=== PATIENT | female | born 1985 | race Caucasian/White ===

== ENCOUNTER 2021-05-29 09:40 | Outpatient (CLI) | payer BC, SELFPAY ==
[2021-05-29 19:11] LABS: Basophils Absolute Auto 0.1 K/mm3 (0.0-0.1); Basophils Percent Auto 0.9 % (0.2-1.2); Eosinophils Absolute Auto 0.3 K/mm3 (0-0.3); Eosinophils Percent Auto 4.8 % (0-4.4); Hematocrit 42.7 % (37.0-47.0); Immature Granulocyte Absolute 0.02 K/mm3 (0.00-0.031); Immature Granulocyte Percent A 0.3 % (0-0.5); Lymphocytes Absolute Auto 1.91 K/mm3 (0.9-3.2); Lymphocytes Percent Auto 32.9 % (18.3-44.2); Mean Corpuscular HGB Conc 32.8 g/dl (32-36); Mean Corpuscular Hemoglobin 28.6 pg (26-34); Mean Corpuscular Volume 87.3 fl (80-100); Mean Platelet Volume 9.2 fl (7.4-10.4); Monocytes Absolute Auto 0.6 K/mm3 (0.1-0.6); Monocytes Percent Auto 9.7 % (2.6-8.5); Neutrophils Percent Auto 51.4 % (45.5-73.1); Platelet Count Result 359 k/mm3 (150-375); Red Blood Count 4.89 M/mm3 (4.2-5.4); Red Cell Distribution Width 13.1 % (11.5-14.5); White Blood Count 5.8 K/mm3 (4.5-10.0)
[2021-05-29 19:20] LABS: Alanine Aminotransferase 11 U/L (4-35); Albumin Level 4.5 g/dL (3.5-5.1); Alkaline Phosphatase 73 U/L (38-126); Anion Gap 9 mmol/L (8-16); Aspartate Amino Transferase 15 U/L (14-36); Bilirubin,Total 0.5 mg/dL (0.2-1.3); Blood Urea Nitrogen 11 mg/dL (7-17); Calcium 9.7 mg/dL (8.4-10.2); Carbon Dioxide 24 mmol/L (22-30); Chloride 104 mmol/L (98-107); Cholesterol 220 mg/dL (0-200); Estimated Glomerular Filt Rate > 60; Glucose 98 mg/dL (65-110); HDL Direct 47 mg/dL; Potassium 4.2 mmol/L (3.4-5.0); Sodium 137 mmol/L (137-145); Triglycerides 108 mg/dL (<150)
[2021-05-29 19:31] LABS: LDL Cholesterol Direct 126 mg/dL
== END 2021-05-29 09:41 | disposition home or self-care (01) ==
PROVIDERS: PCP Family Medicine; Visit Provider Family Medicine
DX: E66.3 Overweight (principal); E11.9 Type 2 diabetes mellitus without complications
CPT/HCPCS: 36415; 80053; 80061; 83036; 84443; 85025

== ENCOUNTER 2023-01-15 08:13 | Outpatient (CLI) | payer BC, SELFPAY ==
[2023-01-15 20:34] LABS: Alanine Aminotransferase 25 U/L (6-35); Albumin Level 3.9 g/dL (3.5-5.1); Alkaline Phosphatase 62 U/L (38-126); Anion Gap 4 mmol/L (8-16); Aspartate Amino Transferase 43 U/L (14-36); Bilirubin,Total 0.4 mg/dL (0.2-1.3); Blood Urea Nitrogen 6 mg/dL (7-17); Calcium 9.3 mg/dL (8.4-10.2); Carbon Dioxide 25 mmol/L (22-30); Chloride 101 mmol/L (98-107); Cholesterol 244 mg/dL (0-200); Estimated Glomerular Filt Rate > 60; Glucose 87 mg/dL (65-110); HDL Direct 63 mg/dL; Sodium 130 mmol/L (137-145); Triglycerides 176 mg/dL (<150)
[2023-01-15 20:45] LABS: LDL Cholesterol Direct 127 mg/dL
== END 2023-01-15 08:14 | disposition home or self-care (01) ==
LOC: ANHBWCLAB 08:15
PROVIDERS: PCP Family Medicine; Visit Provider Family Medicine
DX: Z00.00 Encounter for general adult medical examination without abnormal findings (principal); F41.8 Other specified anxiety disorders; H91.90 Unspecified hearing loss, unspecified ear; M25.569 Pain in unspecified knee; R06.83 Snoring
CPT/HCPCS: 36415; 80053; 80061

== ENCOUNTER 2023-02-25 12:23 | Emergency (ER) | payer BC, SELFPAY ==
[2023-02-25 12:31] VITALS: BP 122/65; PULSE 89; RESP 16; TEMP 37.1; O2SAT 100
--- NOTE | 2023-02-25 12:45 | ED.URI ---
HPI - URI/Sore Throat General Chief Complaint: Upper Respiratory Infection Stated Complaint: Cough/Chest Congestion Time Seen by Provider: 02/25/23 12:45 Source: patient and RN notes reviewed History of Present Illness HPI Narrative: Patient is a 37-year-old female who presents to urgent care with complaints of chest congestion, cough and drainage. Patient is 28 weeks . States that she took Benadryl last night. States her symptoms started on Saturday. Patient denies any ill exposures, fever, nausea or vomiting. Denies any history of asthma or pneumonia. No other acute complaints. No acute distress noted. Patient aware of the plan of care. Some parts of this dictation were generated by voice recognition software and may contain typographical and/or grammatical inaccuracies. Related Data Home Medications Medication Instructions Recorded Confirmed multivitamin 1 tablet PO DAILY 05/29/21 03/14/22 Allergies Allergy/AdvReac Type Severity Reaction Status Date / Time No Known Allergies Allergy Verified 01/15/23 07:53 Review of Systems Review of Systems: CONSTITUTIONAL: Denies fever, chills, or sweats. EYES: Denies visual changes, redness, or discharge. ENT: Reports of sinus congestion, runny nose and postnasal drainage CARDIOVASCULAR: Denies chest pain, palpitations, or edema. RESPIRATORY: Reports cough GASTROINTESTINAL: Denies abdominal pain, nausea, vomiting, or diarrhea. GENITOURINARY: Denies dysuria or hematuria. SKIN: Denies rash or itching. MUSCULOSKELETAL: Denies back pain, joint pain, or myalgia. NEUROLOGIC: Denies headache, numbness, or weakness. All other systems reviewed are negative, except as documented in HPI. [facility] Past Medical History Medical History Anxiety Surgical History Surgical History H/O LEEP Family History Family History Father Cancer Heart problem Mother Depression Hypertension Anxiety Grandparent Diabetes mellitus Grandparent Pancreatic cancer Social History Social History (Updated 10/15/22 @ 11:29 by Cele Jauregui MA) Smoking packs per day: 1 Smoking cigarettes per day: 20.0 Years smoked: 17 Smoking pack-years: 17.00 Smoking status: Former smoker Tobacco type: e-cigarettes/vaping Alcohol intake: never Substance use: never Lack of Transportation: No Lack of Food: Never True Current Housing: I Have Housing Concerned About Future Housing: No Difficulty Paying Gas/Electric Bills: No Difficulty Paying for Meds: No Currently Unemployed: No Education: High School Diploma/GED Difficulty w/ Childcare or Family Care: No Comments At the time of my signature, I reviewed and agree with the nursing past medical, surgical, social, and family history. There is no relevant family history pertinent to the patient complaint. Exam Narrative: GENERAL: This is a well-nourished, well-developed patient, in no apparent distress. HEAD: normocephalic, atraumatic. EYES: PERRL. Sclera clear/white. Vision is grossly intact. EARS: External ears normal, auditory canals clear and without drainage, TMs normal without perforation. Hearing grossly intact. NOSE: External nose normal with no obvious nasal discharge, nares without redness, no rhinorrhea. THROAT: Mucous membranes moist, posterior pharynx clear. Moderate postnasal drainage NECK: Neck supple, non-tender without lymphadenopathy, masses or thyromegaly. CARDIOVASCULAR: Regular rate and rhythm RESPIRATORY: Inspiratory wheezes throughout SKIN: warm, intact with no suspicious lesions or rash, good texture and turgor. NEURO: awake, alert, and oriented to person, place and time. There were no obvious focal neurologic abnormalities. EXTREMITIES: No clubbing, cyanosis, or edema. Course Course Level of Care: [facility] Care Visit V
== END 2023-02-25 13:02 | disposition home or self-care (01) ==
PROVIDERS: Emergency Provider Nurse Practitioner Family; PCP Family Medicine
DX: O99.513 Diseases of the respiratory system complicating pregnancy, third trimester (principal); Z3A.28 28 weeks gestation of pregnancy; J40 Bronchitis, not specified as acute or chronic
CPT/HCPCS: 99213; G0463

== ENCOUNTER 2023-07-30 09:17 | Outpatient (CLI) | payer BC, SELFPAY ==
--- NOTE | ~2023-07-30 | XR_ITS ---
Right Hand Technique: PA and lateral views were obtained. Clinical History: Pain Findings: No acute fracture or dislocation is seen. Osseous alignment is anatomic. Joint spaces are p reserved. Soft tissues are unremarkable. Impression: Unremarkable right hand. Reviewed, dictated and finalized at location M. Impression: Unremarkable right hand.
--- NOTE | ~2023-07-30 | XR_ITS ---
Right wrist Technique: PA and lateral views were obtained. Clinical History: Pain Findings: No acute fracture or dislocation is seen. Osseous alignment is anatomic. Joint spaces are p reserved. Soft tissues are unremarkable. Impression: Unremarkable right wrist radiographs. Reviewed, dictated and finalized at location M. Impression: Unremarkable right wrist radiographs.
[2023-07-30 19:14] LABS: Basophils Percent Auto 0.5 % (0.2-1.2); Eosinophils Absolute Auto 0.3 K/mm3 (0-0.3); Eosinophils Percent Auto 3.5 % (0-4.4); Hemoglobin 12.6 g/dL (12.0-15.0); Immature Granulocyte Absolute 0.02 K/mm3 (0.00-0.031); Immature Granulocyte Percent A 0.3 % (0-0.5); Lymphocytes Absolute Auto 2.56 K/mm3 (0.9-3.2); Lymphocytes Percent Auto 33.5 % (18.3-44.2); Mean Corpuscular HGB Conc 31.5 g/dl (32-36); Mean Corpuscular Volume 85.7 fl (80-100); Mean Platelet Volume 8.6 fl (7.4-10.4); Monocytes Absolute Auto 0.7 K/mm3 (0.1-0.6); Monocytes Percent Auto 8.6 % (2.6-8.5); Neutrophils Absolute Auto 4.1 K/mm3 (1.3-6.7); Neutrophils Percent Auto 53.6 % (45.5-73.1); Platelet Count Result 358 k/mm3 (150-375); Red Blood Count 4.67 M/mm3 (4.2-5.4); Red Cell Distribution Width 13.2 % (11.5-14.5); White Blood Count 7.7 K/mm3 (4.5-10.0)
[2023-07-30 19:24] LABS: Alanine Aminotransferase 39 U/L (6-35); Albumin Level 4.2 g/dL (3.5-5.1); Alkaline Phosphatase 78 U/L (38-126); Anion Gap 6 mmol/L (8-16); Aspartate Amino Transferase 49 U/L (14-36); Bilirubin,Total 0.4 mg/dL (0.2-1.3); Blood Urea Nitrogen 12 mg/dL (7-17); Calcium 9.3 mg/dL (8.4-10.2); Carbon Dioxide 27 mmol/L (22-30); Chloride 102 mmol/L (98-107); Cholesterol 208 mg/dL (0-200); Estimated Glomerular Filt Rate > 60; Glucose 86 mg/dL (65-110); HDL Direct 44 mg/dL; Potassium 4.3 mmol/L (3.4-5.0); Sodium 135 mmol/L (137-145); Triglycerides 152 mg/dL (<150)
[2023-07-30 19:35] LABS: LDL Cholesterol Direct 118 mg/dL
== END 2023-07-30 09:18 | disposition home or self-care (01) ==
PROVIDERS: PCP Family Medicine; Visit Provider Nurse Practitioner Adult Health
DX: E78.5 Hyperlipidemia, unspecified (principal); M25.531 Pain in right wrist; M79.641 Pain in right hand
CPT/HCPCS: 36415; 73100; 73120; 80053; 80061; 84443; 85025

== ENCOUNTER 2023-12-19 11:48 | Outpatient (CLI) | payer BC, SELFPAY ==
[2023-12-19 19:35] LABS: Hematocrit 40.3 % (37.0-47.0); Hemoglobin 12.9 g/dL (12.0-15.0); Mean Corpuscular Hemoglobin 26.8 pg (26-34); Mean Corpuscular Volume 83.8 fl (80-100); Mean Platelet Volume 8.6 fl (7.4-10.4); Platelet Count Result 379 k/mm3 (150-375); Red Blood Count 4.81 M/mm3 (4.2-5.4); Red Cell Distribution Width 13.1 % (11.5-14.5); White Blood Count 7.7 K/mm3 (4.5-10.0)
[2023-12-19 19:44] LABS: Alanine Aminotransferase 12 U/L (6-35); Albumin Level 4.4 g/dL (3.5-5.1); Alkaline Phosphatase 83 U/L (38-126); Anion Gap 6 mmol/L (8-16); Aspartate Amino Transferase 45 U/L (14-36); Bilirubin,Total 0.4 mg/dL (0.2-1.3); Blood Urea Nitrogen 11 mg/dL (7-17); Calcium 9.2 mg/dL (8.4-10.2); Carbon Dioxide 27 mmol/L (22-30); Chloride 104 mmol/L (98-107); Estimated Glomerular Filt Rate > 60; Glucose 80 mg/dL (65-110); Potassium 4.3 mmol/L (3.4-5.0); Sodium 137 mmol/L (137-145)
[2023-12-19 20:18] LABS: Erythrocyte Sedimentation Rate 14 mm/hr (0-20)
[2023-12-19 20:44] LABS: Rheumatoid Factor < 12.0 IU/ML (<12)
[2023-12-23 20:23] LABS: ANA Cascade Screen Negative (Negative)
== END 2023-12-19 11:49 | disposition home or self-care (01) ==
LOC: ANHBWCLAB 11:49
PROVIDERS: PCP Nurse Practitioner Adult Health; Visit Provider Nurse Practitioner Adult Health
DX: M25.50 Pain in unspecified joint (principal)
CPT/HCPCS: 36415; 80053; 84443; 84550; 85027; 85652; 86038; 86225; 86235; 86364; 86430

== ENCOUNTER 2025-02-13 12:01 | Emergency (ER) | payer BC, SELFPAY ==
--- NOTE | ~2025-02-13 | CT_ITS ---
EXAMINATION: CT abdomen pelvis w con DATE: 02/13/2025 13:20 INDICATION: Right upper quadrant abdominal pain TECHNIQUE: Computed tomography (CT) of the abdomen and pelvis was performed with 100 mL Omnipaque-350 intravenous contrast. Automated exposure control and iterative reconstruction technique were employe d. The dose-length product was 659.05 mGy-cm. COMPARISON: None FINDINGS: Lung bases are clear. Heart size normal. No pericardial or pleural effusion. Multiple low density gal lstones in the otherwise normal-appearing gallbladder. Liver is normal. No intra or extra hepatic sharron iary ductal dilation. Spleen, pancreas, bilateral adrenal glands and kidneys are normal. Bowels inclu ding the appendix are normal. Bladder is normal. section scars along the anterior pelvic wal l and the anterior lower uterine segment. Bilateral adnexa are unremarkable with a couple subcentimet er follicles at the left ovary. No free intraperitoneal gas or fluid. No pathologically enlarged abdo astrid or pelvic lymphadenopathy. Mild lumbar and lower thoracic spondylosis. IMPRESSION: 1. Cholelithiasis without evident acute cholecystitis or biliary obstruction. 2. No other acute intra-abdominal/pelvic process with normal appendix. Reviewed, dictated and finalized at location A.
--- OUTSIDE RECORDS SUMMARY | 2025-02-13 12:02 | XMS_ITS | Clinical Summary ---
Author Organization [facility] [employer] Address [address] [place] [address] Care Team Providers Care Plastic Panel Installer Name Role Phone Obinna Leger MD Unavailable [phone] Source Comments [facility] [employer],non-owned Affiliates and Associated Physician Practices is amultiple site organization consisting of ambulatory clinics and hospital sitesin [place], [place], [place] and [place]. This disclosure is being madepursuant to the Care Everywhere program and may not contain all information available regarding this patient. Last updated 18.[facility] [employer] Allergies No known active allergies Medications * Be aware that medications may not be up to date on this document. Alwaysverify current medications with the patient. Medication Sig Dispensed Refills Start Date End Date Status PreviDent 5000 Plus 1.1 % 02/15/2022 Active Vit w/ Fe Bisg-FA (PNV Tabs 20-1) 20-1 MG TABS Take 1 tablet by mouth once daily 90 tablet 4 06/19/2024 Active ferrous sulfate 325 (65 FE) MG tablet Take 1 (one) tablet by mouth once daily 100 tablet 4 07/03/2024 Active Additional Information Patient not taking.Reported on 01/26/2025 folic acid (Folvite) 1 MG tablet Take 1 (one) tablet by mouth once daily Active vitamin D3 (Cholecalciferol ) 10 MCG (400 UNIT) tablet Take 1 (one) tablet by mouth once daily Active cyanocobalamin (Vitamin B-12) 1000 MCG tablet Take 1 (one) tablet by mouth once daily Active oxyCODONE-acetam inophen (Percocet) 5-325 MG tabletIndication s:S/P section Take 1 (one) tablet by mouth every 6 hours as needed for Pain 12 tablet 01/23/2025 Active Additional Information Patient not taking.Reported on 01/26/2025 ibuprofen (Motrin) 600 MG tablet Take 1 (one) tablet by mouth every 6 hours as needed for Pain 40 tablet 1 01/23/2025 Active gabapentin (Neurontin) 100 MG capsule Take 2 (two) capsules by mouth 2 times daily as needed (pain) 30 capsule 1 01/23/2025 Active aspirin (Aspirin) 81 MG chew tablet Take 1 (one) tablet by mouth once daily 5 Discontinue d(Tx Complete) Active Problems Problem Noted Date Diagnosed Date Previous section 11/23/2024 Dichorionic diamniotic twin , antepartu m 08/18/2024 H/O LEEP 10/11/2022 Antepartum multigravida of advanced maternal age 1210/11/2022 Tinnitus of both ears 07/06/2020 Tachycardia 07/06/2020 Strain of rhomboid muscle 07/06/2020 Resolved Problems Problem Noted Date Diagnosed Date Resolved Date BMI 30.0-30.9,adult 07/06/2020 08/18/20 24 Sleep disturbance 07/06/2020 08/18/2024 Body mass index (bmi) 33.0-33.9, adult 02/18/2017 07/06/2020 Encounters Date Type Department Care Team Description 01/27/2025 Telephone [facility] - RN GYNECOLOGY [address] [place] [address], [address] [place] [phone] Delfina Monzon MD Vaginal Bleeding 01/26/2025 11:20 AM CDT Office Visit [facility] - RN GYNECOLOGY [address] [place] [address], [address] [place] [phone] Obinna Leger MD Routine follow-up (Primary Dx) 01/26/2025 Travel 01/19/2025 9:40 AM CDT Anesthesia Event [facility] [address] [place] [address] Abhi Gorman MD Floretta, Marie, APRN-SHAYNA 01/19/2025 9:30 AM CDT - 01/19/2025 11:00 AM CDT [facility] [address] [place] [address] Delfina Monzon MD SECTION (REPEAT) 01/19/2025 7:37 AM CDT - 01/23/2025 6:05 PM CDT Hospital Encounter [facility] [address] [place] [address] Delfina Monzon MD Surgery General Discharge Disposition: Home or Self Care 01/12/2025 9:07 AM JEWELRY BEARING MAKER - 01/12/2025 11:59 PM [employer]RY [employer]ING [employer] Hospital Encounter [facility] - Maternal [address] [place] [phone] Dani Hines MD Head, Em Chicas MD Discharge Disposition: Home or Self Care 01/12/2025 9:00 AM JEWELRY BEARING MAKER - 01/12/2025 9:06 AM J[employer]RY [employer]ARING [employer] Hospital Encounter [facility] - Maternal [address] [place] [phone] Dani Hines MD Head, Em Chicas MD Discharge Disposition: Home or Self Care 01/05/2025 11:15 AM JEWELRY BEARING MAKER visit [facility] - RN GYNECOLOGY [address] [place] [address], [address] [place] [phone] Delfina Monzon MD GA: 36w0d 01/05/2025 9:14 AM JEWELRY BEARING [employer]KER - 01/05/2025 11:59 PM [employer]RY [employer] Hospital Encounter [facility] - Maternal [address] [place] [phone] Dani Hines MD Ok, Sarah Harrell MD Discharge Disposition: Home or Self Care 01/05/2025 9:00 AM JEWELRY BEARING [employer]KER - 01/05/2025 9:13 AM J[employer]RY [employer]ARING [employer] Hospital Encounter [facility] [address] [place] [phone] Dani Hines MD [place], Sarah Harrell MD Discharge Disposition: Home or Self Care 01/05/2025 Travel 12/29/2024 9:23 AM JEWELRY BEARING MAKER - 12/29/2024 11:59 PM [employer]RY [employer]AR[employer] Hospital Encounter [facility] [address] [place] [phone] Dani Hines MD [place], Sarah Harrell MD Discharge Disposition: Home or Self Care 12/29/2024 9:00 AM JEWELRY BEARING MAKER - 12/29/2024 9:22 AM JEWELRY BEARING [employer]KER Hospital Encounter [facility] [address] [place] [phone] Dani Hines MD [place], Sarah Harrell MD Discharge Disposition: Home or Self Care 12/22/2024 11:45 AM JEWELRY BEARING MAKER visit [facility] - RN GYNECOLOGY [address] [place] [address], [address] [phone] Delfina Monzon MD GA: 34w0d 12/22/2024 9:16 AM JEWELRY BEARING MAKER - 12/22/2024 11:59 PM JEWELRY [employer]ARING [employer]ER Hospital Encounter [facility] [address] [place] [phone] Dani Hines MD Keller, Justine M, MD Discharge Disposition: Home or Self Care 12/22/2024 9:00 AM JEWELRY BEARING MAKER - 12/22/2024 9:15 AM JEWELRY BEARING [employer]KER Hospital Encounter [facility] [address] [place] [phone] Dani Hines MD Keller, Justine M, MD Discharge Disposition: Home or Self Care 12/15/2024 9:12 AM JEWELRY BEARING MAKER - 12/15/2024 11:59 PM JEWELRY BEARING [employer]KER Hospital Encounter [facility] - Maternal [address] [place] [phone] Dani Hines MD Stewart, Jeffrey D, MD Discharge Disposition: Home or Self Care 12/15/2024 9:00 AM JEWELRY BEARING MAKER - 12/15/2024 9:11 AM JEWELRY BEARING [employer]KER Hospital Encounter [facility] - Maternal [address] [place] [phone] Dani Hines MD Stewart, Jeffrey D, MD Discharge Disposition: Home or Self Care 12/08/2024 11:45 AM JEWELRY BEARING MAKER visit [facility] - RN GYNECOLOGY [address] [place] [address], [address] [phone] Delfina Monzon MD GA: 32w0d 12/08/2024 9:15 AM JEWELRY BEARING MAKER - 12/08/2024 11:59 PM [employer]ELRY [employer]ARING [employer] Hospital Encounter [facility] - Maternal [address] [place] [phone] Dani Hines MD Stewart, Jeffrey D, MD Discharge Disposition: Home or Self Care 12/08/2024 9:00 AM JEWELRY BEARING MAKER - 12/08/2024 9:14 AM JEWELRY BEARING [employer]KER Hospital Encounter [facility] - Maternal [address] [place] [phone] Dani Hines MD Head, Em Chicas MD Discharge Disposition: Home or Self Care 12/08/2024 Travel 11/23/2024 9:45 AM JEWELRY BEARING MAKER visit [facility] - RN GYNECOLOGY [address] [place] [address], [address] [place] [phone] Delfina Monzon MD GA: 29w6d 11/23/2024 Travel from Last 3 Months Immunizations Name Administration Dates Next Due TDAP (7yrs+) 11/09/2024 TDAP, HISTORIC VACCINE 07/26/2022 Family History Medical History Relation Name Comments Hypertension Brother 1 Ramón CAD (Coronary Artery Disease) Father Cancer Father unknown [place]<[id number](male) Father Parkinson's Disease Father Diabetes Maternal Grandmother Hypertension Mother Glaucoma Paternal Grandfather Relation Name Status Comments Brother 1 Ramón Alive Brother 2 Zhou Alive Father Alive Maternal Grandfather Maternal Grandmother Mother Alive Paternal Grandfather Paternal Grandmother Sister Alive Social History Tobacco Use Types Packs/Day Years Used Date Smoking Tobacco: Former Cigarettes 1 13 Smokeless Tobacco: Never Tobacco Cessation:Counseling Given: Not Answered Comments:Currently Vape Alcohol Use Standard Drinks/Week Comments Not Currently 4.2 (1 standard drink = 0.6 oz p ure alcohol) AUDIT-C Answer Date Recorded Frequency of Alcohol Consumption Never 07/10/2019 Average Number of Drinks Not on file 019 Frequency of Binge Drinking Not on file 06/13 Overall Financial Resource Strain (CARDIA) Answe r Date Recorded How hard is it for you to pa y for the very basics like food, housing, medical care, and heating? Not hard at all 05/20/2023 PHQ-2 Answer Date Recorded Patient Health Questionnaire-2 Score 0 01/21/2025 [facility] - Occupational Stress Questionnaire Answer Date Recorded Do you feel stress - tense, restless, nervous, or anxious, or unable to sleep at night because your mind is troubled all the time - these days? Not at all 05/20/2023 Hunger Vital Sign Answer Date Recorded Within the past 12 months, y ou worried that your food would run out before you got the money to buy more. Never true 05/20/20 23 Within the past 12 months, t he food you bought just didn't last and you didn't have money to get more. Never true 05/20/2023 PRAPARE - Transportation Answer Date Re corded In the past 12 months, has l ack of transportation kept you from medical appointments or from getting medications? No 05/11 In the past 12 months, has l ack of transportation kept you from meetings, work, or from getting things needed for daily living? No 05/20/2023 Housing Stability Vital Sign Answer Holger e Recorded In the last 12 months, was t here a time when you were not able to pay the mortgage or rent on time? No 05/20/2023 In the last 12 months, how many places have you lived? 1 05/20/2023 In the last 12 months, was t here a time when you did not have a steady place to sleep or slept in a senior living (including now)? No 05/20/2023 [place] Depression Scale Answer Date Recorded [place] Depression Scale Total 4 01/22/2025 The thought of harming myself has occurred to me . Never 01/22/2025 Sex and Gender Information Value Date Recorded Sex Assigned at Not on file Gender Identity Not on file Sexual Orientation Not on file Last Filed Vital Signs Vital Sign Reading Time Taken Comments Blood Pressure 118/76 01/26/2025 11:36 AM CDT Pulse 93 01/23/2025 4:40 PM CDT Temperature 36.9 C (98.5 F) 01/23/2025 4:40 PM CDT Respiratory Rate 16 01/23/2025 8:35 AM CDT Oxygen Saturation 98% 01/23/2025 4:40 PM CDT Inhaled Oxygen Concentration - - Weight 100.7 kg (222 lb) 01/26/2025 11:36 AM CDT Height 157.5 cm (5' 2 ) 01/26/2025 11:36 AM CDT Body Mass Index 40.6 01/26/2025 11:36 AM CDT Plan of Treatment Upcoming Encounters Date Type Department Care Team (Late st Contact Info) Description 03/01/2025 11:10 AM CDT Office Visit [facility] - RN GYNECOLOGY [address] [place] [address], [address] [place] [phone] Obinna Leger MD [address] [place] [address] [place] [phone] Health Maintenance Due Date Last Done Comments HEPATITIS B VACCINE (1 of 3 - 19+ 3-dose series) 2004 COVID-19 VACCINE (2023- season) 2024 INFLUENZA VACCINE (Season Ended) 2025 PAP with HPV 06/19/2029 06/19/2024, 10/11, 10/11/2022, Additional history exists DTAP/TDAP/TD VACCINES (3 - Td or Tdap) 11/09/2034 11/09/2024, 07/26/2022 ZOSTER VACCINE (1 of 2) 2035 HEPATITIS C SCREENING Completed 07/29/2018 HIV SCREENING Completed 06/19/2024, 11/2021, 07/29/2018 DEPRESSION SCREENING Completed 01/22/2025, 11/23/2024, 06/19/2024, Additional history exists HIB VACCINE Aged Out No longer eligi ble based on patient's age to complete this topic HPV VACCINE Aged Out No longer eligi ble based on patient's age to complete this topic MENINGOCOCCAL (Group B) VACCINE SHARED DECISION-MAKING Aged Out No longer eligible based on patient's age to complete this topic MENINGOCOCCAL GROUPS A/C/Y/W VACCINE Aged Out No longer eligible based on patient's age to complete this topic PNEUMOCOCCAL VACCINE Aged Out No long er eligible based on patient's age to complete this topic Procedures Procedure Name Priority Date/Time Associated Diagnosis Comments PATHOLOGY/CYTOLOGY REPORT ORDER 01/20/2025 9:54 PM CDT HGB HCT PANEL AM Draw 01/20/2025 7:12 AM CDT PATHOLOGY TISSUE EXAM (STL) Routine 01/19/2025 11:11 AM CDT Dichorionic diamniotic twin , antepartum NEURAXIAL BLOCK Routine 01/19/2025 10:00 AM CDT SECTION (REPEAT) 01/19/2025 9:15 AM CDT , incidental NONSTRESS TEST Routine 01/19/2025 8:39 AM CDT TYPE + SCREEN PANEL STAT 01/19/2025 7 :58 AM CDT SYPHILIS ANTIBODY CASCADING REFLEX STAT 01/19/2025 7:58 AM CDT Dichorionic diamniotic twin , antepartum Previous section CBC W AUTO DIFFERENTIAL STAT 01/19/2025 7:58 AM CDT Dichorionic diamniotic twin , antepartum Previous section BIOPHYSICAL PROFILE W NST Routine 01/12/2025 9:15 AM JEWELRY BEARING MAKER Dichorionic diamniotic twin , antepartum Antepartum multigravida of advanced maternal age H/O LEEP Previous section Obesity in , antepartum High risk , antepartum CULTURE STREP B Routine 01/05/2025 11:33 AM JEWELRY BEARING MAKER Dichorionic diamniotic twin , antepartum BIOPHYSICAL PROFILE W NST Routine 01/05/2025 9:21 AM J[employer]ELRY BEARING MAKER Dichorionic diamniotic twin , antepartum Antepartum multigravida of advanced maternal age H/O LEEP Previous section Obesity in , antepartum High risk , antepartum BIOPHYSICAL PROFILE W NST Routine 12/29/2024 9:31 AM JEWELRY BEARING MAKER Dichorionic diamniotic twin , antepartum Antepartum multigravida of advanced maternal age H/O LEEP Previous section Obesity in , antepartum High risk , antepartum BIOPHYSICAL PROFILE W NST Routine 12/22/2024 9:32 AM J[employer]ELRY BEARING [employer]KER Dichorionic diamniotic twin , antepartum Antepartum multigravida of advanced maternal age H/O LEEP Previous section Obesity in , antepartum High risk , antepartum BIOPHYSICAL PROFILE W NST Routine 12/15/2024 9:11 AM JEWELRY BEARING [employer]KER Dichorionic diamniotic twin , antepartum Antepartum multigravida of advanced maternal age H/O LEEP Previous section Obesity in , antepartum High risk , antepartum SONOGRAM - COMPLETE Routine 12/08/2024 9 :20 AM JEWELRY BEARING [employer]KER Dichorionic diamniotic twin , antepartum Antepartum multigravida of advanced maternal age H/O LEEP Previous section Obesity in , antepartum High risk , antepartum HIV-1 HIV-2 ANTIBODY + HIV P24 AG PANEL Routine 06/19/2024 12:24 PM CDT 8 weeks gestation of PAP IG CT+NG+TV+HPV HR Routine 06/19/2024 10:49 AM CDT 8 weeks gestation of HEPATITIS C ANTIBODY Routine 07/29/2018 3:40 PM CDT Screening for STD (sexually transmitted disease) from Last 3 Months or Most Recently Relevant to Health Maintenance Results * PATHOLOGY/CYTOLOGY REPORT ORDER (01/20/2025 9:54 PM CDT) Narrative 01/20/2025 9:54 PM CDT Ordered by an unspecified provider. Scanned Document LAB - PATHOLOGY/CYTO LOGY ORDERABLES * (ABNORMAL) HGB HCT PANEL (01/20/2025 7:12 AM CDT) Hemoglobin 11.0(L) 11.9 - 15.8 g/dL 01/20/2025 7:23 AM CDT [facility] Hematocrit 33.1(L) 34.8 - 46.1 % 01/20/2025 7:23 AM CDT [facility] Blood BLOOD SPECIMEN / Unknown Lab Venipuncture / Unknown 01/20/2025 7:12 AM CDT 01/20/2025 7:14 AM CDT Delfina Monzon MD LAB - HEMATOLOGY ORD ERABLES [facility] [address] [place] [address] * PATHOLOGY TISSUE EXAM (STL) (01/19/2025 11:11 AM CDT) Case Report Surgical Pathology Report Case: [id number] Authorizing Provider: Delfina Monzon MD Collected: 01/19/2025 11:11 AM [facility] Received: 01/20/2025 07:48 AM [facility] Pathologist: Tamar Hudson MD Specimen: Placenta 01/21/2025 3:02 PM CDT [facility] Final Diagnosis 1. Placenta, delivery: -- Third trimester dichorionic diamniotic placenta -- Placenta A&B: No evidence of villitis -- Placenta A&B: Pigment-laden macrophages seen, consistent with meconium staining -- Placenta A&B: No evidence of chorioamnionitis -- Placenta A&B: 3-vessel umbilical cord with focal acute vasculitis and no evidence of funisitis 01/21/2025 3:02 PM [facility] Clinical History Thirty-eight weeks of gestational age. DC/DA Twins 01/21/2025 3:02 PM [facility] Gross Description Received in formalin labeled with the patient's name and placenta for pathology is a 21 x 20.5 x 3.5 cm fused twin placenta. One umbilical cord has a single cord clamps and is arbitrarily taken as placenta A and the opposing umbilical cord has 2 cord clamps that is arbitrarily taken as placenta B. Placenta A has a 21 cm in length and 1.5 cm in average diameter white-de oliveira, tri vascular umbilical cord that inserts 3.5 cm from the nearest disc margin. Placenta B has a 15 cm in length and 1.5 cm in average diameter white-de oliveira, tri vascular umbilical cord that inserts marginally. Placenta A makes up approximately 60% of the placental disc. Placenta B makes up approximately 40% of the placental disc. The trimmed placenta weighs 925 g. The /dividing membranes are de oliveira and semitranslucent. The surface is blue-hernandez with normal arborizing vasculature pattern. The maternal surface is red-brown, well-formed and grossly appears complete. The specimen is sectioned to show spongy red-brown cut surfaces. Licensed Nurse Practitioner sections are submitted as follows: A1-dividing membranes A2-umbilical cord and membranes, placenta A A3-umbilical cord and membranes, placenta B A4-A5-full thickness sections of placental disc, placenta A V2-Z0-arjf-thickness sections of placental disc, placenta B 01/21/2025 3:02 PM [facility] Microscopic Description Placental disc, membrane, and umbilical cord examined. 01/21/2025 3:02 PM [facility] Disclaimer All histochemical and/or immunohistochemical results are interpreted with controls that demonstrate appropriate staining reactions before reporting results. Note on use of immunocytochemistry reagents: This test was developed and its performance characteristic determined by [facility], Department of Laboratory Medicine. It has not been cleared or approved by the U.S. Food and Drug Administration (FDA). The FDA has determined that such clearance or approval is not necessary. The test is used for clinical purpose. It should not be regarded as investigational or for research. This laboratory is certified to perform high complexity testing. The performance characteristics of the IHC/MAYRA assays have been validated on formalin-fixed paraffin embedded tissues only. The assays have not been validated on decalcified tissues. Results should be interpreted with caution. 01/21/2025 3:02 PM CDT [facility] Embedded Images 01/21/2025 3:02 PM CDT [facility] Pathology/Cytolo gy ENTIRE PLACENTA / Unknown Collection / Unknown 01/19/2025 11:11 AM CDT 01/20/2025 7:48 AM CDT Delfina Monzon MD LAB - PATHOLOGY/CYTO LOGY ORDERABLES Performing Organization Address City/State/[facility] Co de Phone Number [facility] [address] [place] [id number] * Neuraxial Block (01/19/2025 10:00 AM CDT) Narrative Abhi Gorman MD - 01/19/2025 10:00 AM CDT Janie Segal APRN-SHAYNA 01/19/2025 10:01 AM Neuraxial Block Note Pre-Procedure: Procedure Name: Neuraxial Block Patient Location: OR Indications: surgical anesthesia Pre-Anesthetic Checklist: Patient identified, IV Checked, Risks and benefits discussed, Surgical consent verified, Monitors and equipment, Site examined, Pre-op evaluation done, Time-out performed, Informed consent obtained, Questions answered/anesthesia questions answered and Allergies reviewed Anticoagulation/ Anti-thrombosis status confirmed? Yes Supplemental O2: nasal cannula Monitors: BP, continuous pluse ox, EKG and End tidal CO2 Patient Condition: awake Patient Sedated? No Procedure: Block Type: Spinal Prep: Betadine Sterile Field: mask, cap/hat, sterile established and sterile gloves Approach: midline Skin was localized? Yes Spinal Block: Is this procedure for postop pain? Yes Reason: anticipated postoperative pain Diagnosis: labor Needle Type: spinal needle Needle Gauge: 25 Needle Length: 90 mm Placement Site: L3-4 Number of Attempts: 1 CSF: aspiration before injection, aspiration during injection, aspiration after injection Degree of difficulty: none Procedure Tolerance: tolerated well Sensory Level: T4 Motor Blockade: Yes Position post procedure: left uterine displacement Vital Signs: Vital signs monitored and stable throughout. See anesthesia record for details., Vital signs moniitored and stable throughout. See nursing vitals flowsheet for details., heart tones monitored and stable throughout. Staff: Anesthesia Provider: Janie Segal APRN-POLICE JUDGE - performed the procedure Additional Notes: Pt understands risks and benefits of SAB and consents to SAB. Abhi Gorman MD GENERAL ANESTH ESIA ORDERABLES * NONSTRESS TEST (01/19/2025 8:39 AM CDT) Narrative Delfina Monzon MD - 01/19/2025 8:39 AM CDT Mandy Kirkland RN 01/19/2025 8:40 AM Name: Theodora Cristina Date of : 1985 Today's Date: 01/19/2025 38w0d NST RESULTS (MULTIPLES) OBJECTIVE FINDINGS , , , BP: 120/73 NST Indication(s): Multiple gestation Uterine Irritability: Yes Contractions: Irregular Frequency: x3 Duration (sec) Range: 50-60 Perceived Intensity: Mild COMMENTS/INTERVENTIONS OBJECTIVE FINDINGS Movement A: Present Monitoring Mode A: External Baseline FHR: 140 BPM Variability A: Moderate Accelerations-A: Yes Decelerations-A: None Movement B: Present Monitoring Mode B: External Baseline FHR B: 135 BPM Variability B: Moderate Accelerations-B: Yes Decelerations-B: None Mandy Kirkland RN Delfina Monzon MD OB GYNE ORDERABLES * SYPHILIS ANTIBODY CASCADING REFLEX (01/19/2025 7:58 AM CDT) Treponema pallidum Antibody Non Reactive Non Reactive 01/19/2025 5:54 PM CDT [facility] Comment: No Laboratory evidence of syphilis infection. Note: Circulating antibodies may be low or undetectable in early infection. If recent exposure is suspected, re-draw sample in 2-4 weeks and repeat testing. Blood BLOOD SPECIMEN / Unknown Venipuncture / Unknown 01/19/2025 7:58 AM CDT 01/19/2025 8:03 AM CDT Delfina Monzon MD LAB - SEROLOGY ORDER ZANE [facility] [address] [place] [address] * TYPE + SCREEN PANEL (All [facility] except [facility]) (01/19/2025 7:58 AM CDT) Pathologist [facility] ABO Rh O POS 01/19/2025 8:54 AM CDT [facility] Comment:History checked. Antibody Screen NEG 8:54 AM CDT [facility] Blood Bank BLOOD SPECIMEN / Unknown Venipuncture / Unknown 01/19/2025 7:58 AM CDT 01/19/2025 8:03 AM CDT Delfina Monzon MD LAB - BLOOD BANK ORD ERABLES [facility] [address] [phone] * (ABNORMAL) CBC W AUTO DIFFERENTIAL (01/19/2025 7:58 AM CDT) Pathologist [facility] WBC 13.8(H) 4.0 - 10.7 x10E9/L 01/19/2025 8:07 AM CDT [facility] RBC Count 4.35 3.90 - 5.20 x10E12/L 01/19/2025 8:07 AM CDT [facility] Hemoglobin 13.2 11.9 - 15.8 g/dL 01/19/2025 8:07 AM CDT [facility] Hematocrit 36.9 34.8 - 46.1 % 01/19/2025 8:07 AM CDT [facility] MCV 84.8 80.0 - 98.0 fL 01/19/2025 8:07 AM CDT [facility] MCH 30.3 26.7 - 33.6 pg 01/19/2025 8:07 AM CDT [facility] MCHC 35.8 31.7 - 36.3 g/dL 01/19/2025 8:07 AM [facility] RDW-CV 14.1 11.3 - 14.8 % 01/19/2025 8:07 AM [facility] Platelet Count 194 150 - 420 x10E9/L 01/19/2025 8:07 AM [facility] MPV 9.5 7.8 - 11.4 fL 01/19/2025 8:07 AM [facility] Neutrophil % 76.9(H) 41.0 - 74.0 % 01/19/2025 8:07 AM [facility] Lymphocyte % 15.6(L) 17.0 - 47.0 % 01/19/2025 8:07 AM [facility] Monocyte % 5.3 3.0 - 11.0 % 01/19/2025 8:07 AM [facility] Eosinophil % 1.2 0.0 - 7.0 % 01/19/2025 8:07 AM [facility] Basophil % 0.3 0.0 - 1.6 % 01/19/2025 8:07 AM [facility] Immature Granulocytes % 0.7 0.0 - 1.0 % 01/19/2025 8:07 AM [facility] Neutrophil Absolute 10.64(H) 1.60 - 7.50 x10E9/L 01/19/2025 8:07 AM [facility] Lymphocyte Absolute 2.15 1.00 - 4.40 x10E9/L 01/19/2025 8:07 AM [facility] Monocyte Absolute 0.73 0.15 - 1.00 x10E9/L 01/19/2025 8:07 AM [facility] Eosinophil Absolute 0.16 0.00 - 0.60 x10E9/L 01/19/2025 8:07 AM [facility] Basophil Absolute 0.04 0.00 - 0.13 x10E9/L 01/19/2025 8:07 AM [facility] Blood BLOOD SPECIMEN / Unknown Venipuncture / Unknown 01/19/2025 7:58 AM CDT 01/19/2025 8:03 AM CDT Delfina Monzon MD LAB - HEMATOLOGY ORD ERABLES [facility] [address] [id number] * BIOPHYSICAL PROFILE W NST (01/12/2025 9:15 AM [employer]) Only the most recent of5 resultswithin the time period is included. Linked Results Indication ======== DC/DA Twins Incomplete anatomy- Twin A, lt hand Complete anatomy- Twin B Advanced Maternal Age (39) Normal 3 hr GTT Class II Obesity Hx LEEP G1: CD History ====== OB History 2. Para 1 T1 1. live 05/21/2023. Gest. age 40 w + 4 d. Weight 3,033 g. Sex of child: female. Details: delivery, breech Fetus A: Lab Tests Test Date Result NIPT Low risk, female/female Maternal Assessment = Physical Exam Height 157 cm, 5 ft 2 in. Weight 109 kg, 240 lb. Initial weight 98 kg, 217 lb. BMI 43.90 kg/m . Initial BMI 39.69 kg/m . Weight gain 10 kg, 23 lb Method ====== Transabdominal ultrasound examination. View: Sufficient ========= Twin . Number of fetuses: 2. Dichorionic-diam niotic Dating ====== Date Details Gest. age RUY Stated RUY 37 w + 0 d 02/02/2025 Assigned dating based on stated RUY, selected on 09/15/2024 37 w + 0 d 02/02/2025 Fetus A: General Evaluation Cardiac activity present. FHR 157 bpm. Presentation: breech right Placenta: Placental site: anterior Fetus B: General Evaluation Cardiac activity present. FHR 167 bpm. Presentation: breech left Placenta: Placental site: anterior Fetus A: Amniotic Fluid Assessment ===== Amount of AF: normal Q1 7.0 cm Fetus B: Amniotic Fluid Assessment ===== Amount of AF: normal Q1 3.9 cm Fetus A: Biophysical Profile 2: breathing movements 2: Gross body movements 2: tone 2: Amniotic fluid volume NST: reactive 10/10 Biophysical profile score Fetus B: Biophysical Profile 2: breathing movements 2: Gross body movements 2: tone 2: Amniotic fluid volume NST: reactive 10/10 Biophysical profile score Fetus A: Non Stress Test NST interpretation: reactive. Baseline FHR 140 bpm. Baseline variability: moderate. Accelerations: present. Decelerations: absent. Uterine activity: present Fetus B: Non Stress Test NST interpretation: reactive. Baseline FHR 135 bpm. Baseline variability: moderate. Accelerations: present. Decelerations: absent. Uterine activity: present Fetus A: Growth Overview = Exam date GA BPD (mm) HC (mm) AC (mm) FL (mm) HL (mm) EFW (g) 09/15/2024 20w 0d 47.7 68% 173.5 37% 151 56% 33.4 59% 33.9 95% 348 65% 10/14/2024 24w 1d 61.4 73% 221.1 31% 189.1 26% 43.1 36% 38.7 26% 644 32% 11/09/2024 27w 6d 69.8 44% 255.3 17% 233.7 37% 52.1 32% 49.6 78% 1122 34% 12/08/2024 32w 0d 77.3 15% 281.9 3% 284.8 64% 59.3 13% 52.6 16% 1827 31% 01/05/2025 36w 0d 83.2 4% 299.8 <1% 316.9 49% 69 30% 59.2 28% 2585 27% Fetus B: Growth Overview = Exam date GA BPD (mm) HC (mm) AC (mm) FL (mm) HL (mm) EFW (g) 09/15/2024 20w 0d 48.6 78% 181.6 68% 149.4 51% 34.1 68% 31.5 73% 355 71% 10/14/2024 24w 1d 61.2 70% 217.2 19% 194.5 41% 46.7 80% 40 45% 721 65% 11/09/2024 27w 6d 72.7 80% 266.1 56% 238.1 50% 53.3 48% 48.6 64% 1209 55% 12/08/2024 32w 0d 83.4 84% 297 35% 283.2 59% 62 40% 53 21% 1975 53% 01/05/2025 36w 0d 85.4 16% 303.4 <1% 324.8 71% 72.2 71% 60.3 41% 2826 51% Fetus A: Anatomy The following structures appear normal: Abdomen Stomach. Kidneys. Bladder. sex: female. Fetus B: Anatomy The following structures appear normal: Abdomen Stomach. Kidneys. Bladder. sex: female. Impression ========= Dichorionic-diam niotic, live, intrauterine at 37w 0d Amniotic fluid volume: normal for twin A and normal for twin B Biophysical profile is 10/10 for twin A and 10/10 for twin B Comment ======== delivery scheduled for 38w0d. Follow-up ======== Continue weekly testing until delivery. Coding ====== Procedures 41286: US Uterus Limited 73487: Biophysical Profile W NST. x2 [facility] 800razors PACS Anatomical Region Laterality Modality Other 01/12/2025 9:15 AM [employer] Agusto Lisa MD [facility] * CULTURE STREP B (01/05/2025 11:33 AM [employer]) Strep Group B Culture Negative Negative [facility] ACCOUNT BILL Comment: Centers for Disease Control and Prevention (CDC) and [place] [employer] of [employer]stetricians and Gynecologists (ACOG) guidelines for prevention of group B streptococcal (GBS) disease specify co-collection of a vaginal and rectal swab specimen to maximize sensitivity of GBS detection. Per the CDC and ACOG, swabbing both the lower vagina and rectum substantially increases the yield of detection compared with sampling the vagina alone. Penicillin G, ampicillin, or cefazolin are indicated for intrapartum prophylaxis of GBS colonization. Reflex susceptibility testing should be performed prior to use of clindamycin only on GBS isolates from penicillin-allergic women who are considered a high risk for anaphylaxis. Treatment with vancomycin without additional testing is warranted if resistance to clindamycin is noted. Microbiology MISCELLANEOUS SAMPLES / Unknown 01/05/2025 11:33 AM [facility] [employer] [facility] 01/05/2025 Comment:Vaginal/Rectal Relea s Narrative [facility] ACCOUNT BILL - 01/09/2025 3:09 PM [facility] [employer] [facility] Performed at: 01 - [facility] [address] [id number] Manager Intensive Care: Herbert Ritchie PhD, Phone: [phone] Delfina Monzon MD LAB - MICROBIOLOGY O RDERABLES [facility] ACCOUNT BILL [address] [place] [address] * SONOGRAM - COMPLETE (12/08/2024 9:20 AM [employer]) Linked Results Indication ======== DC/DA Twins Incomplete anatomy screening Advanced Maternal Age (39) Class II Obesity Hx LEEP G1: CD History ====== OB History 2. Para 1 T1 1. live 05/21/2023. Gest. age 40 w + 4 d. Weight 3,033 g. Sex of child: female. Details: delivery, breech Fetus A: Lab Tests Test Date Result NIPT Low risk, female/female Maternal Assessment Physical Exam Height 157 cm, 5 ft 2 in. Weight 109 kg, 241 lb. Initial weight 98 kg, 217 lb. BMI 44.08 kg/m . Initial BMI 39.69 kg/m . Weight gain 11 kg, 24 lb Method ====== Transabdominal ultrasound examination. View: Suboptimal view: limited by late gestational age. Suboptimal view: limited by position ========= Twin . Number of fetuses: 2. Dichorionic-diam niotic Dating ====== Date Details Gest. age RUY Stated RUY 32 w + 0 d 02/02/2025 Assigned dating based on stated RUY, selected on 09/15/2024 32 w + 0 d 02/02/2025 Fetus A: General Evaluation Cardiac activity present. FHR 149 bpm. Presentation: breech right Placenta: Placental site: anterior Fetus B: General Evaluation Cardiac activity present. FHR 146 bpm. Presentation: breech left Placenta: Placental site: anterior Fetus A: Amniotic Fluid Assessment ==== Amount of AF: normal, normal MVP 5.0 cm Fetus B: Amniotic Fluid Assessment ==== Amount of AF: normal MVP 5.1 cm Fetus A: Biophysical Profile 2: breathing movements 2: Gross body movements 2: tone 2: Amniotic fluid volume NST: reactive 10/10 Biophysical profile score Fetus B: Biophysical Profile 2: breathing movements 2: Gross body movements 2: tone 2: Amniotic fluid volume NST: reactive 10/10 Biophysical profile score Fetus A: Non Stress Test NST interpretation: reactive. Baseline FHR 150 bpm. Baseline variability: moderate. Accelerations: present. Decelerations: absent Fetus B: Non Stress Test NST interpretation: reactive. Baseline FHR 140 bpm. Baseline variability: moderate. Accelerations: present Fetus A: Biometry BPD 77.3 mm 31w 0d 15% Hadlock HC 281.9 mm 30w 6d 3% Hadlock AC 284.8 mm 32w 4d 64% Hadlock Femur 59.3 mm 30w 6d 13% Hadlock Humerus 52.6 mm 30w 4d 16% Avelina HC / AC 0.99 Weight Calculation: EFW 1,827 g 31% Hadlock EFW (lb,oz) 4 lb 0 oz EFW by Hadlock ([id number]) EFW discordance 7.5 % appropriate Fetus B: Biometry BPD 83.4 mm 33w 4d 84% Hadlock HC 297.0 mm 32w 6d 35% Hadlock AC 283.2 mm 32w 2d 59% Hadlock Femur 62.0 mm 32w 1d 40% Hadlock Humerus 53.0 mm 30w 6d 21% Avelina HC / AC 1.05 Weight Calculation: EFW 1,975 g 53% Hadlock EFW (lb,oz) 4 lb 6 oz EFW by Hadlock ([id number]) EFW discordance 7.5 % appropriate Fetus A: Growth Overview = Exam date GA BPD (mm) HC (mm) AC (mm) FL (mm) HL (mm) EFW (g) 09/15/2024 20w 0d 47.7 68% 173.5 37% 151 56% 33.4 59% 33.9 95% 348 65% 10/14/2024 24w 1d 61.4 73% 221.1 31% 189.1 26% 43.1 36% 38.7 26% 644 32% 11/09/2024 27w 6d 69.8 44% 255.3 17% 233.7 37% 52.1 32% 49.6 78% 1122 34% 12/08/2024 32w 0d 77.3 15% 281.9 3% 284.8 64% 59.3 13% 52.6 16% 1827 31% Fetus B: Growth Overview = Exam date GA BPD (mm) HC (mm) AC (mm) FL (mm) HL (mm) EFW (g) 09/15/2024 20w 0d 48.6 78% 181.6 68% 149.4 51% 34.1 68% 31.5 73% 355 71% 10/14/2024 24w 1d 61.2 70% 217.2 19% 194.5 41% 46.7 80% 40 45% 721 65% 11/09/2024 27w 6d 72.7 80% 266.1 56% 238.1 50% 53.3 48% 48.6 64% 1209 55% 12/08/2024 32w 0d 83.4 84% 297 35% 283.2 59% 62 40% 53 21% 1975 53% Fetus A: Anatomy The following structures appear normal: Face Orbits. Heart / Thorax RVOT view. Abdomen Stomach. Kidneys. Bladder. The following structures could not be adequately visualized: Extremities / Skeleton Left hand. The following structures were documented previously: Head / Neck Cranium. Lateral ventricles. Choroid plexus. Midline falx. Cavum septi pellucidi. Cerebellum. Cisterna magna. Thalami. Nuchal fold. Face Lips. Profile. Nose. Nasal bone. Heart / Thorax 4-chamber view. LVOT view. 3-vessel view. 0-uezipu-fbedoyy view. Situs. Aortic arch view. Bicaval view. Ductal arch view. Great vessels. Right lung. Left lung. Diaphragm. Abdomen Cord insertion. Bowel. Genitals. Spine Cervical spine. Thoracic spine. Lumbar spine. Sacral spine. Extremities / Skeleton Arms. Right hand. Legs. Feet. sex: female. Fetus B: Anatomy The following structures appear normal: Abdomen Stomach. Kidneys. Bladder. The following structures were documented previously: Head / Neck Cranium. Lateral ventricles. Choroid plexus. Midline falx. Cavum septi pellucidi. Cerebellum. Cisterna magna. Thalami. Nuchal fold. Face Lips. Profile. Nose. Nasal bone. Orbits. Heart / Thorax 4-chamber view. RVOT view. LVOT view. 3-vessel view. 0-qyansu-pgpurou view. Situs. Aortic arch view. Bicaval view. Ductal arch view. Great vessels. Right lung. Left lung. Diaphragm. Abdomen Cord insertion. Bowel. Genitals. Spine Cervical spine. Thoracic spine. Lumbar spine. Sacral spine. Extremities / Skeleton Arms. Hands. Legs. Feet. sex: female. Impression ========= Dichorionic-diam niotic, live, intrauterine at 32w 0d size is appropriate for twin A and appropriate for twin B . growth is concordant Amniotic fluid volume: normal, normal for twin A and normal for twin B Biophysical profile reveals 10/10 for twin A and 10 /10 for twin B Follow-up ======== Continue weekly testing Coding ====== Procedures 87352: [place] [address]: Biophysical Profile W NST [address]275: [place] [address]: Biophysical Profile W NST 800razors PACS Anatomical Region Laterality Modality Other 12/08/2024 9:20 AM [facility] Agusto Lisa MD [facility] * HIV-1 HIV-2 ANTIBODY + HIV P24 AG PANEL (06/19/2024 12:24 PM CDT) [facility] HIV Screen 4th Generation w Reflex Non Reactive Non Reactive [facility] ACCOUNT BILL Comment: HIV-1/HIV-2 antibodies and HIV-1 p24 antigen were NOT detected. There is no laboratory evidence of HIV infection. HIV Negative Blood BLOOD SPECIMEN / Unknown 06/19/2024 12:24 PM CDT 06/19/2024 Narrative Resulting Agency Comment Lab Testing performed at: [facility] [address] [facility] [id number] Obinna Leger MD LAB - CHEMISTRY ORD ERABLES [facility] ACCOUNT BILL [address] [place] [address] * PAP IG CT+NG+TV+HPV HR (06/19/2024 10:49 AM CDT) Diagnosis [facility] ACCOUNT BILL Comment:NEGATIVE FOR INTRAEP ITHELIAL LESION OR MALIGNANCY. Specimen Adequacy [facility] ACCOUNT BILL Comment: Satisfactory for evaluation. No endocervical component is identified. An endocervical component is not commonly seen in the patient. Clinician Provided ICD10 [facility] ACCOUNT BILL Comment:Z3A.08 Clinical History LAB CELE ACCOUNT BILL Comment:ONE CODE Z3A CANNOT BE PRIMARY CODE Performed by [facility] ACCOUNT BILL Comment:Carly Wall, Cyto technologist (ASCP) Comment . [facility] ACCOUNT BILL Note [facility] ACCOUNT BILL Comment: The Pap smear is a screening test designed to aid in the detection of premalignant and malignant conditions of the uterine cervix. It is not a diagnostic procedure and should not be used as the sole means of detecting cervical cancer. Both false-positive and false-negative reports do occur. . IGLBP CPT Code Automation [facility] ACCOUNT BILL Comment: This liquid based ThinPrep(R) pap test was screened with the use of an image guided system. Human papillomavirus Aptima Negative Negative [facility] ACCOUNT BILL Comment: This nucleic acid amplification test detects fourteen high-risk HPV types (16,18,31,33,35,39,45,51,52,56,58,59,66,68) without differentiation. Chlamydia trachomatis SHITAL Negative Negative [facility] ACCOUNT BILL GC SHITAL Negative Negative [facility] ACCOUNT BILL Trichomonas vaginalis by SHITAL Negative Negative [facility] ACCOUNT BILL Pathology/Cytolog y PART OF UTERINE CERVIX / Unknown 06/19/2024 10:49 AM CDT 06/19/2024 Narrative [facility] ACCOUNT BILL - 06/25/2024 3:09 PM CDT No. of containers..01 ThinPrep Vial Resulting Agency Comment Lab Testing performed at: [facility] [id number] Obinna Leger MD LAB - PATHOLOGY/CYT OLOGY ORDERABLES [facility] ACCOUNT BILL [address] [place] [address] * HEPATITIS C ANTIBODY (07/29/2018 3:40 PM CDT) Hepatitis C Antibody <0.1 0.0 - 0.9 s/co ratio [facility] INSURANCE BILL Comment: Negative: < 0.8 Indeterminate: 0.8 - 0.9 Positive: > 0.9 . The CDC recommends that a positive HCV antibody result be followed up with a HCV Nucleic Acid Amplification test (669295). Blood BLOOD SPECIMEN / Unknown 07/29/2018 3:40 PM CDT 07/29/2018 Narrative Resulting Agency Comment [facility] [address] [facility] [id number] Obinna Leger MD LAB - CHEMISTRY ORD ERABLES [facility] INSURANCE BILL [address] [place] [address] from Last 3 Months or Most Recently Relevant to Health Maintenance Advance Directives * Full Code (Latest Code Status on File) Date Activated Date Inactivated Comments 01/19/2025 7:57 AM 01/23/2025 7:11 PM * Full Code Date Activated Date Inactivated Comments 05/21/2023 3:47 PM 05/24/2023 3:02 PM * Full Code Date Activated Date Inactivated Comments 05/20/2023 8:38 PM 05/21/2023 3:47 PM 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
--- NOTE | 2025-02-13 12:20 | ED_ITS ---
HPI - Abdominal Pain General Chief Complaint: Abdominal Pain Stated Complaint: abd pain Time Seen by Provider: 02/13/25 12:19 Source: patient History of Present Illness HPI narrative: 39 years old white female came to the ED by private car complaining of waking up at 11:00 a.m. with right radiating to, resolved on arrival to the ED. She denies any fever, chills, nausea, vomiting, diarrhea, constipation. Patient is nursing 3 weeks twins. Related Data Home Medications ?Medication ?Instructions ?Recorded ?Confirmed ?Last Taken ?Type multivitamin 1 tablet PO DAILY 05/29/21 12/19/23 Unknown History Allergies Allergy/AdvReac Type Severity Reaction Status Date / Time No Known Allergies Allergy Verified 02/13/25 12:01 Review of Systems 2 Review of Systems: All systems reviewed & are unremarkable except as noted in HPI and below PMFSH Past Medical History Medical History Anxiety Surgical History Surgical History H/O LEEP Family History Family History Father Cancer Heart problem Mother Depression Hypertension Anxiety Grandparent Diabetes mellitus Grandparent Pancreatic cancer Social History Social History Smoking packs per day: 1 Smoking cigarettes per day: 20.0 Years smoked: 17 Smoking pack-years: 17.00 Smoking status: Former smoker Tobacco type: e-cigarettes/vaping Alcohol intake: never Substance use: never Lack of Transportation: No Lack of Food: Never True Current Housing: I Have Housing Concerned About Future Housing: No Difficulty Paying Gas/Electric Bills: No Difficulty Paying for Meds: No Currently Unemployed: No Education: High School Diploma/GED Difficulty w/ Childcare or Family Care: No Exam 2 Narrative: General appearance: Well-developed, well-nourished Skin: Normal color Head: Normocephalic, nontraumatic Eyes: Clear conjunctiva ENT: Oropharynx normal, ears normal, nose normal Neck: Supple, nontender Chest and respiratory: Airway patent, no respiratory distress, no accessory muscle use Heart: Regular rate/rhythm Abdomen: Soft, nontender, no organomegaly, quiet bowel sounds Vascular: Normal peripheral pulses, normal capillary refill. Musculoskeletal: Normal range of motion, nontender back Neurologic: Alert and oriented ?3, GEOLOGICAL SAMPLE TESTER is normal as tested, no gross motor deficit MDM - Abdominal Pain MDM Narrative Medical decision making narrative: Differential diagnosis include musculoskeletal pain, patient's sleep pattern has been changed over the last 3 weeks since she have the twins. Urinary tract infection, cholecystitis, diverticulitis, constipation Blood workup today includes CBC, CMP, lipase showed no significant abnormalities, Urinalysis showed evidence of infection CT scan of the abdomen and pelvis with IV contrast showed no acute abnormalities Diagnosis urinary tract infection Patient received 1 g of Rocephin IV prior to discharge Discharged on augment The pt was discharged to home.the pt,s condition upon discharge was fair,education was provided to the pt in reference to the final impression,discharge study results,treatment,prognosis and need for follow up . Differential Diagnosis Differential diagnosis: Likely other (As above) Medical Records Attestation: I reviewed the patient's medical records. Lab Data Attestation: I reviewed the patient's lab results. 02/13/25 12:41 02/13/25 12:41 Labs: Lab Results 02/13/25 02/13/25 02/13/25 Range/Units 12:15 12:17 12:41 WBC 6.7 (4.5-10.0) K/mm3 RBC 5.03 (4.2-5.4) M/mm3 Hgb 14.5 (12.0-15.0) g/dL Hct 44.5 (37.0-47.0) % MCV 88.5 (80-100) fl MCH 28.8 (26-34) pg MCHC 32.6 (32-36) g/dl RDW 12.9 (11.5-14.5) % Plt Count 317 (150-375) k/mm3 MPV 8.6 (7.4-10.4) fl Immature Gran % (Auto) 0.3 (0-0.5) % Neut % (Auto) 62.5 (45.5-73.1) % Lymph % (Auto) 25.6 (18.3-44.2) % Dickey % (Auto) 5.7 (2.6-8.5) % Eos % (Auto) 5.2 H (0-4.4) % Baso % (Auto) 0.7 (0.2-1.2) % Lymph # (Auto) 1.72 (0.9-3.2) K/mm3 Dickey # (Auto) 0.4 (0.1-0.6) K/mm3 Eos # (Auto) 0.4 H (0-0.3) K/mm3 Baso # (Auto) 0.1 (0.0-0.1) K/mm3 Abs Immat Gran (auto) 0.02 (0.00-0.031) K/mm3 Absolute Neuts (auto) 4.2 (1.3-6.7) K/mm3 Absolute Nucleated RBC 0.000 (0.0-0.012) K/mm3 Nucleated RBC % 0.0 (0.0-0.2) % Sodium 140 (137-145) mmol/L Potassium 4.3 (3.4-5.0) mmol/L Chloride 104 (98-107) mmol/L Carbon Dioxide 25 (22-30) mmol/L Anion Gap 11 (4-12) mmol/L BUN 16 (7-17) mg/dL Creatinine 0.79 (0.7-1.0) mg/dL Estim Creat Clear Calc Not Reportable Estimated GFR > 60 (59 - ) Glucose 87 (65-110) mg/dL Calcium 9.2 (8.4-10.2) mg/dL Total Bilirubin 0.6 (0.2-1.3) mg/dL AST 29 (14-36) U/L ALT 46 H (6-35) U/L Alkaline Phosphatase 94 (38-126) U/L Total Protein 8.0 (6.3-8.2) g/dL Albumin 4.6 (3.5-5.1) g/dL Lipase 46 (23-300) U/L Urine Color Yellow (Yellow) Urine Appearance Clear (Clear) Urine pH 5.5 (5.0-9.0) Ur Specific [place] 1.018 (1.001-1.035) Urine Protein Negative (Negative) mg/dL Urine Glucose (UA) Negative (Negative) mg/dL Urine Ketones Negative (Negative) mg/dL Ur Blood (Man) 3+ H (Negative) Urine Nitrate Negative (Negative) Urine Bilirubin Negative (Negative) Urine Urobilinogen 0.2 (<2.0) mg/dL Leukocyte Esterase Rfl 2+ H (Negative) SVITLANA/UL Urine RBC 51-100 H (0-2) /hpf Urine WBC 21-50 H (0-3) /hpf Ur Squamous Epith Cells Occasional (Few) /hpf Urine Bacteria None seen /hpf Urine Casts 0-2 POC Urine HCG, Qual Negative (Negative) Imaging Data Radiologist's impression: ITS Impressions Abdomen/Pelvis CT 02/13/25 13:31 IMPRESSION: 1. Cholelithiasis without evident acute cholecystitis or biliary obstruction. 2. No other acute intra-abdominal/pelvic process with normal appendix. Critical Care Time Critical Care Time Critical Care Time: No Discharge Plan Discharge Clinical Impression: Urinary tract infection Patient Disposition: Home, Self-Care Condition: Stable Instructions: Antibiotic Form, Urinary Tract Infection in Women (DC) Additional Instructions: Return if symptoms are worsening , call your family physician for appointment, take Tylenol, ibuprofen as as needed for aches and pain, continue home medications. Patient Language: Latvian Prescriptions: New amoxicillin-pot clavulanate [Augmentin] 500-125 mg tablet 1 tablet PO Q12H Qty: 14 0RF No Action multivitamin Tablet 1 tablet PO DAILY Follow-up/Referrals: Angela Godinez APRN [Primary Care Provider] -
[2025-02-13 12:27] LABS: BEDSIDEPREGUCG Negative (Negative)
--- OUTSIDE RECORDS SUMMARY | 2025-02-13 12:31 | XMS_ITS | Clinical Summary ---
Author Organization [facility] Address [address] [place] [address] Care Team Providers Care Group Controller Name Role Phone Obinna Leger MD Unavailable [phone] Source Comments [facility],non-owned Affiliates and Associated Physician Practices is amultiple site organization consisting of ambulatory clinics and hospital sitesin [place], [place], [place] and [place]. This disclosure is being madepursuant to the Care Everywhere program and may not contain all information available regarding this patient. Last updated 18.[facility] Allergies No known active allergies Medications * [...] Type Department Care Team Description 01/27/2025 Telephone [facility] - JUNIOR SALES REPRESENTATIVE [address] [place] [address], [address] [place] [phone] Delfina Monzon MD Vaginal Bleeding 01/26/2025 11:20 AM CDT Office Visit [facility] - JUNIOR SALES REPRESENTATIVE [address] [place] [address], [address] [place] [phone] Obinna Leger MD Routine follow-up (Primary Dx) 01/26/2025 Travel 01/19/2025 9:40 AM CDT Anesthesia Event [facility] [place] [id number] [place] [address] Abhi Gorman MD Floretta, Marie, APRN-SHAYNA 01/19/2025 9:30 AM CDT - 01/19/2025 11:00 AM CDT [facility] [address] [place] [address] Delfina Monzon MD SECTION (REPEAT) 01/19/2025 7:37 AM CDT - 01/23/2025 6:05 PM CDT Hospital [facility]counter [facility] [address] [place] [address] Delfina Monzon MD Surgery General Discharge Disposition: Home or Self Care 01/12/2025 9:07 AM ADULT BASIC STUDIES TEACHER - 01/12/2025 11:59 PM ADULT BASIC STUDIES TEACHER Hospital Encounter [facility] [address] [place] [phone] Dani Hines MD Head, Em Chicas MD Discharge Disposition: Home or Self Care 01/12/2025 9:00 AM ADULT BASIC STUDIES TEACHER - 01/12/2025 9:06 AM ADULT BASIC STUDIES TEACHER Hospital Encounter [facility] [address] [place] [phone] Dani Hines MD Head, Em Chicas MD Discharge Disposition: Home or Self Care 01/05/2025 11:15 AM ADULT BASIC STUDIES TEACHER visit [facility] - JUNIOR SALES REPRESENTATIVE [address] [place] [address], [address] [place] [phone] Delfina Monzon MD GA: 36w0d 01/05/2025 9:14 AM ADULT BASIC STUDIES TEACHER - 01/05/2025 11:59 PM ADULT BASIC STUDIES TEACHER Hospital Encounter [facility] [address] [place] [phone] Dani Hines MD Ok, Sarah Harrell MD Discharge Disposition: Home or Self Care 01/05/2025 9:00 AM ADULT BASIC STUDIES TEACHER - 01/05/2025 9:13 AM ADULT BASIC STUDIES TEACHER Hospital Encounter [facility] [address] [place] [phone] Dani Hines MD Childress, Sarah Harrell MD Discharge Disposition: Home or Self Care 01/05/2025 Travel 12/29/2024 9:23 AM ADULT BASIC STUDIES TEACHER - 12/29/2024 11:59 PM ADULT BASIC STUDIES TEACHER Hospital Encounter [facility] [address] [place] [phone] Dani Hines MD Childress, Sarah Harrell MD Discharge Disposition: Home or Self Care 12/29/2024 9:00 AM ADULT BASIC STUDIES TEACHER - 12/29/2024 9:22 AM ADULT BASIC STUDIES TEACHER Hospital Encounter [facility] [address] [place] [phone] Dani Hines MD Childress, Sarah Harrell MD Discharge Disposition: Home or Self Care 12/22/2024 11:45 AM ADULT BASIC STUDIES TEACHER visit [facility] - JUNIOR SALES REPRESENTATIVE [address] [place] [address], [address] [phone] Delfina Monzon MD GA: 34w0d 12/22/2024 9:16 AM ADULT BASIC STUDIES TEACHER - 12/22/2024 11:59 PM ADULT BASIC STUDIES TEACHER Hospital Encounter [facility] [address] [place] [phone] Dani Hines MD Keller, Justine M, MD Discharge Disposition: Home or Self Care 12/22/2024 9:00 AM ADULT BASIC STUDIES TEACHER - 12/22/2024 9:15 AM ADULT BASIC STUDIES TEACHER Hospital Encounter [facility] [address] [place] [phone] Dani Hines MD Keller, Justine M, MD Discharge Disposition: Home or Self Care 12/15/2024 9:12 AM ADULT BASIC STUDIES TEACHER - 12/15/2024 11:59 PM ADULT BASIC STUDIES TEACHER Hospital Encounter [facility] [address] [place] [phone] Dani Hines MD Stewart, Jeffrey D, MD Discharge Disposition: Home or Self Care 12/15/2024 9:00 AM ADULT BASIC STUDIES TEACHER - 12/15/2024 9:11 AM ADULT BASIC STUDIES TEACHER Hospital Encounter [facility] [address] [place] [phone] Dani Hines MD Stewart, Jeffrey D, MD Discharge Disposition: Home or Self Care 12/08/2024 11:45 AM ADULT BASIC STUDIES TEACHER visit [facility] - JUNIOR SALES REPRESENTATIVE [address] [place] [address], [address] [phone] Delfina Monzon MD GA: 32w0d 12/08/2024 9:15 AM ADULT BASIC STUDIES TEACHER - 12/08/2024 11:59 PM ADULT BASIC STUDIES TEACHER Hospital Encounter [facility] [address] [place] [phone] Dani Hines MD Stewart, Jeffrey D, MD Discharge Disposition: Home or Self Care 12/08/2024 9:00 AM ADULT BASIC STUDIES TEACHER - 12/08/2024 9:14 AM ADULT BASIC STUDIES TEACHER Hospital Encounter [facility] [address] [place] [phone] Dani Hines MD Head, Em Chicas MD Discharge Disposition: Home or Self Care 12/08/2024 Travel 11/23/2024 9:45 AM ADULT BASIC STUDIES TEACHER visit [facility] - JUNIOR SALES REPRESENTATIVE [address] [place] [address], [address] [place] [phone] Delfina Monzon MD GA: 29w6d 11/23/2024 Travel from Last 3 Months Immunizations Name Administration Dates Next Due TDAP (7yrs+) 11/09/2024 TDAP, HISTORIC VACCINE 07/26/2022 Family History Medical History Relation Name Comments Hypertension Brother 1 Ramón CAD (Coronary Artery Disease) Father Cancer Father unknown ME<55(male) Father Parkinson's Disease Father Diabetes Maternal Grandmother [...] Recorded Patient Health Questionnaire-2 Score 0 01/21/2025 [facility] - [...] place to sleep or slept in a custodial (including now)? No 05/20/2023 [place] Depression Scale Answer Date Recorded [place] Depression Scale Total 4 01/22/2025 The thought [...] Description 03/01/2025 11:10 AM CDT Office Visit [facility] - JUNIOR SALES REPRESENTATIVE [address] [place] [address], [address] [place] [phone] Obinna Leger MD [address] [place] [address] [place] [phone] Health Maintenance Due Date Last Done [...] PROFILE W NST Routine 01/12/2025 9:15 AM ADULT BASIC STUDIES TEACHER Dichorionic diamniotic twin , antepartum Antepartum multigravida of advanced maternal age H/O LEEP Previous section Obesity in , antepartum High risk , antepartum CULTURE STREP B Routine 01/05/2025 11:33 AM ADULT BASIC STUDIES TEACHER Dichorionic diamniotic twin , antepartum BIOPHYSICAL PROFILE W NST Routine 01/05/2025 9:21 AM ADULT BASIC STUDIES TEACHER Dichorionic diamniotic twin , antepartum Antepartum multigravida of advanced maternal age H/O LEEP Previous section Obesity in , antepartum High risk , antepartum BIOPHYSICAL PROFILE W NST Routine 12/29/2024 9:31 AM ADULT BASIC STUDIES TEACHER Dichorionic diamniotic twin , antepartum Antepartum multigravida of advanced maternal age H/O LEEP Previous section Obesity in , antepartum High risk , antepartum BIOPHYSICAL PROFILE W NST Routine 12/22/2024 9:32 AM ADULT BASIC STUDIES TEACHER Dichorionic diamniotic twin , antepartum Antepartum multigravida of advanced maternal age H/O LEEP Previous section Obesity in , antepartum High risk , antepartum BIOPHYSICAL PROFILE W NST Routine 12/15/2024 9:11 AM ADULT BASIC STUDIES TEACHER Dichorionic diamniotic twin , antepartum Antepartum multigravida of advanced maternal age H/O LEEP Previous section Obesity in , antepartum High risk , antepartum SONOGRAM - COMPLETE Routine 12/08/2024 9 :20 AM ADULT BASIC STUDIES TEACHER Dichorionic diamniotic twin , antepartum Antepartum multigravida [...] - 15.8 g/dL 01/20/2025 7:23 AM CDT [facility] Hematocrit 33.1(L) 34.8 - 46.1 % 01/20/2025 7:23 AM CDT [facility] Blood BLOOD SPECIMEN / Unknown Lab Venipuncture / Unknown 01/20/2025 7:12 AM CDT 01/20/2025 7:14 AM CDT Delfina Monzon MD LAB - HEMATOLOGY ORD ERABLES [facility] [address] [place] [address] * PATHOLOGY TISSUE EXAM (STL) (01/19/2025 11:11 AM CDT) Case Report Surgical Pathology Report Case: [id number] Authorizing Provider: Delfina Monzon MD Collected: 01/19/2025 11:11 AM Ordering Location: [facility] Received: 01/20/2025 07:48 AM [facility] Pathologist: Tamar Hudson MD Specimen: Placenta 01/21/2025 3:02 PM CDT [facility] Final Diagnosis 1. Placenta, delivery: -- Third trimester dichorionic diamniotic placenta -- Placenta A&B: No evidence of villitis -- Placenta A&B: Pigment-laden macrophages seen, consistent with meconium staining -- Placenta A&B: No evidence of chorioamnionitis -- Placenta A&B: 3-vessel umbilical cord with focal acute vasculitis and no evidence of funisitis 01/21/2025 3:02 PM [facility] Clinical History Thirty-eight weeks of gestational age. DC/DA Twins 01/21/2025 3:02 PM [facility] Gross Description Received in formalin labeled [...] sectioned to show spongy red-brown cut surfaces. Credit Support Specialist sections are submitted as follows: A1-dividing membranes A2-umbilical cord and membranes, placenta A A3-umbilical cord and membranes, placenta B A4-A5-full thickness sections of placental disc, placenta A K7-I4-daxg-thickness sections of placental disc, placenta B 01/21/2025 3:02 PM [facility] Microscopic Description Placental disc, membrane, and umbilical cord examined. 01/21/2025 3:02 PM [facility] Disclaimer All histochemical and/or immunohistochemical results are interpreted with controls that demonstrate appropriate staining reactions before reporting results. Note on use of immunocytochemistry reagents: This test was developed and its performance characteristic determined by [facility], Department of Laboratory Medicine. It has [...] interpreted with caution. 01/21/2025 3:02 PM CDT [facility] Embedded Images 01/21/2025 3:02 PM CDT [facility] Pathology/Cytolo gy ENTIRE PLACENTA / Unknown Collection / Unknown 01/19/2025 11:11 AM CDT 01/20/2025 7:48 AM CDT Delfina Monzon MD LAB - PATHOLOGY/CYTO LOGY ORDERABLES Performing Organization Address City/State/[facility] Co de Phone Number [facility] [address] [place] [address] * Neuraxial Block (01/19/2025 10:00 AM CDT) [...] stable throughout. Staff: Anesthesia Provider: Janie Segal APRN-BUILDING WRECKER - performed the procedure Additional Notes: Pt [...] Reactive Non Reactive 01/19/2025 5:54 PM CDT [facility] Comment: No Laboratory evidence of syphilis infection. Note: Circulating antibodies may be low or undetectable in early infection. If recent exposure is suspected, re-draw sample in 2-4 weeks and repeat testing. Blood BLOOD SPECIMEN / Unknown Venipuncture / Unknown 01/19/2025 7:58 AM CDT 01/19/2025 8:03 AM CDT Delfina Monzon MD LAB - SEROLOGY ORDER ZANE [facility] [address] [place] [address] * TYPE + SCREEN PANEL (All [facility] except [facility]) (01/19/2025 7:58 AM CDT) Pathologist [facility] ABO Rh O POS 01/19/2025 8:54 AM CDT [facility] Comment:History checked. Antibody Screen NEG 8:54 AM CDT [facility] Blood Bank BLOOD SPECIMEN / Unknown Venipuncture / Unknown 01/19/2025 7:58 AM CDT 01/19/2025 8:03 AM CDT eDlfina Monzon MD LAB - BLOOD BANK ORD ERABLES [facility] [address] [phone] * (ABNORMAL) CBC W AUTO DIFFERENTIAL (01/19/2025 7:58 AM CDT) Pathologist [facility] WBC 13.8(H) 4.0 - 10.7 x10E9/L 01/19/2025 8:07 AM CDT [facility] RBC Count 4.35 3.90 - 5.20 x10E12/L 01/19/2025 8:07 AM CDT [facility] Hemoglobin 13.2 11.9 - 15.8 g/dL 01/19/2025 8:07 AM CDT [facility] Hematocrit 36.9 34.8 - 46.1 % 01/19/2025 8:07 AM CDT [facility] MCV 84.8 80.0 - 98.0 fL 01/19/2025 8:07 AM CDT [facility] MCH 30.3 26.7 - 33.6 pg 01/19/2025 8:07 AM CDT [facility] MCHC 35.8 31.7 - 36.3 g/dL 01/19/2025 8:07 AM [facility] RDW-CV 14.1 11.3 - 14.8 % 01/19/2025 8:07 AM [facility] Platelet Count 194 150 - 420 x10E9/L 01/19/2025 8:07 AM [facility] MPV 9.5 7.8 - 11.4 fL 01/19/2025 8:07 AM [facility] Neutrophil % 76.9(H) 41.0 - 74.0 % 01/19/2025 8:07 AM [facility] Lymphocyte % 15.6(L) 17.0 - 47.0 % 01/19/2025 8:07 AM [facility] Monocyte % 5.3 3.0 - 11.0 % 01/19/2025 8:07 AM [facility] Eosinophil % 1.2 0.0 - 7.0 % 01/19/2025 8:07 AM [facility] Basophil % 0.3 0.0 - 1.6 % 01/19/2025 8:07 AM [facility] Immature Granulocytes % 0.7 0.0 - 1.0 % 01/19/2025 8:07 AM [facility] Neutrophil Absolute 10.64(H) 1.60 - 7.50 x10E9/L 01/19/2025 8:07 AM [facility] Lymphocyte Absolute 2.15 1.00 - 4.40 x10E9/L 01/19/2025 8:07 AM [facility] Monocyte Absolute 0.73 0.15 - 1.00 x10E9/L 01/19/2025 8:07 AM [facility] Eosinophil Absolute 0.16 0.00 - 0.60 x10E9/L 01/19/2025 8:07 AM [facility] Basophil Absolute 0.04 0.00 - 0.13 x10E9/L 01/19/2025 8:07 AM [facility] Blood BLOOD SPECIMEN / Unknown Venipuncture / Unknown 01/19/2025 7:58 AM CDT 01/19/2025 8:03 AM CDT Delfina Monzon MD LAB - HEMATOLOGY ORD ERABLES [facility] [address] [id number] * BIOPHYSICAL PROFILE W NST (01/12/2025 9:15 AM ADULT BASIC STUDIES TEACHER) Only the most recent of5 resultswithin the [...] weekly testing until delivery. Coding ====== Procedures 99262: [place] Uterus Limited [address]5541: Biophysical Profile W NST. x2 [facility] [place] PACS Anatomical Region Laterality Modality Other 01/12/2025 9:15 AM ADULT BASIC STUDIES TEACHER Agusto Lisa MD [facility] ORDERABLES * CULTURE STREP B (01/05/2025 11:33 AM ADULT BASIC STUDIES TEACHER) Strep Group B Culture Negative Negative [facility] ACCOUNT BILL Comment: Centers for Disease Control and Prevention (CDC) and [place] [employer] of Obstetricians and Gynecologists (ACOG) guidelines [...] MISCELLANEOUS SAMPLES / Unknown 01/05/2025 11:33 AM ADULT BASIC STUDIES TEACHER 01/05/2025 Comment:Vaginal/Rectal Relea s Narrative [facility] ACCOUNT BILL - 01/09/2025 3:09 PM ADULT BASIC STUDIES TEACHER Performed at: 01 - [facility] [address] [id number] Service Counter Cashier: Herbert Ritchie PhD, Phone: [phone] Delfina Monzon MD LAB - MICROBIOLOGY O RDERABLES [facility] ACCOUNT BILL [address] [place] [address] * SONOGRAM - COMPLETE (12/08/2024 9:20 AM ADULT BASIC STUDIES TEACHER) Linked Results Indication ======== DC/DA Twins Incomplete [...] 4 lb 0 oz EFW by Hadlock ([id number]) EFW discordance 7.5 % appropriate Fetus B: Biometry BPD 83.4 mm 33w 4d 84% Hadlock HC 297.0 mm 32w 6d 35% Hadlock AC 283.2 mm 32w 2d 59% Hadlock Femur 62.0 mm 32w 1d 40% Hadlock Humerus 53.0 mm 30w 6d 21% Avelina HC / AC 1.05 Weight Calculation: EFW 1,975 g 53% Hadlock EFW (lb,oz) 4 lb 6 oz EFW by Hadlock ([id number]) EFW discordance 7.5 % appropriate Fetus A: [...] Thorax 4-chamber view. LVOT view. 3-vessel view. 9-dlpszl-atlnbsa view. Situs. Aortic arch view. Bicaval view. [...] view. RVOT view. LVOT view. 3-vessel view. 3-pukfmb-qgdrxnb view. Situs. Aortic arch view. Bicaval view. [...] ======== Continue weekly testing Coding ====== Procedures 02558: [place] [address]: Biophysical Profile W NST 59283: [place] [address]: Biophysical Profile W NST [place] PACS Anatomical Region Laterality Modality Other 12/08/2024 9:20 AM ADULT BASIC STUDIES TEACHER Agusto Lisa MD [facility] ORDER[facility]LES * HIV-1 HIV-2 ANTIBODY + HIV P24 AG PANEL (06/19/2024 12:24 PM CDT) [facility] HIV Screen 4th Generation w Reflex Non Reactive Non Reactive [facility] ACCOUNT BILL Comment: HIV-1/HIV-2 antibodies and HIV-1 p24 antigen were NOT detected. There is no laboratory evidence of HIV infection. HIV Negative Blood BLOOD SPECIMEN / Unknown 06/19/2024 12:24 PM CDT 06/19/2024 Narrative Resulting Agency Comment Lab Testing performed at: [facility] [place] [address] [facility] [id number] Obinna Leger MD LAB - CHEMISTRY ORD ERABLES [facility] ACCOUNT BILL [address] [place] [address] * PAP IG CT+NG+TV+HPV HR (06/19/2024 10:49 [...] Resulting Agency Comment Lab Testing performed at: [place] [id number] Obinna Leger MD LAB - PATHOLOGY/CYT OLOGY ORDERABLES [facility] ACCOUNT BILL [address] [place] [address] * HEPATITIS C ANTIBODY (07/29/2018 3:40 PM CDT) Hepatitis C Antibody <0.1 0.0 - 0.9 s/co ratio [facility] INSURANCE BILL Comment: Negative: < 0.8 Indeterminate: 0.8 - 0.9 Positive: > 0.9 . The CDC recommends that a positive HCV antibody result be followed up with a HCV Nucleic Acid Amplification test (080514). Blood BLOOD SPECIMEN / Unknown 07/29/2018 3:40 PM CDT 07/29/2018 Narrative Resulting Agency Comment [facility] [place] [address] [facility] [phone] Obinna Leger MD LAB - CHEMISTRY ORD ERABLES [facility] INSURANCE BILL [address] [place] [address] from Last 3 Months or Most Recently Relevant to Health Maintenance Advance Directives * Full Code (Latest Code Status on File) Date Activated Date Inactivated Comments 01/19/2025 7:57 AM 01/23/2025 7:11 PM * Full Code Date Activated Date Inactivated Comments 05/21/2023 3:47 PM 05/24/2023 3:02 PM * Full Code Date Activated Date Inactivated Comments 05/20/2023 8:38 PM 05/21/2023 3:47 PM Care Teams Group Controller Relationship Specialty Start Date End Date Obinna Leger MD [address] [facility] [address] [place] [address] Obstetrics and Gynecology 07/06/20
[2025-02-13] MEDS: SODIUM CHLORIDE 0.9% IV 1,000 ML 999 ML IV CONT (12:43)
[2025-02-13 12:48] LABS: Basophils Absolute Auto 0.1 K/mm3 (0.0-0.1); Basophils Percent Auto 0.7 % (0.2-1.2); Eosinophils Absolute Auto 0.4 K/mm3 (0-0.3); Eosinophils Percent Auto 5.2 % (0-4.4); Hematocrit 44.5 % (37.0-47.0); Hemoglobin 14.5 g/dL (12.0-15.0); Immature Granulocyte Absolute 0.02 K/mm3 (0.00-0.031); Immature Granulocyte Percent A 0.3 % (0-0.5); Lymphocytes Absolute Auto 1.72 K/mm3 (0.9-3.2); Lymphocytes Percent Auto 25.6 % (18.3-44.2); Mean Corpuscular HGB Conc 32.6 g/dl (32-36); Mean Corpuscular Hemoglobin 28.8 pg (26-34); Mean Corpuscular Volume 88.5 fl (80-100); Mean Platelet Volume 8.6 fl (7.4-10.4); Monocytes Absolute Auto 0.4 K/mm3 (0.1-0.6); Monocytes Percent Auto 5.7 % (2.6-8.5); Neutrophils Absolute Auto 4.2 K/mm3 (1.3-6.7); Neutrophils Percent Auto 62.5 % (45.5-73.1); Platelet Count Result 317 k/mm3 (150-375); Red Blood Count 5.03 M/mm3 (4.2-5.4); Red Cell Distribution Width 12.9 % (11.5-14.5); White Blood Count 6.7 K/mm3 (4.5-10.0)
[2025-02-13 12:54] LABS: Add Urine Microscopic? YES; Appearance Urine Clear (Clear); Bacteria Urine None Seen /hpf; Bilirubin Urine Negative (Negative); Blood Urine 3+ (Negative); Color Urine Yellow (Yellow); Glucose Urine UA Negative (Negative); Ketones Urine Negative (Negative); Leukocyte Esterase Ur 2+ LEU/UL (Negative); Nitrate Urine Negative (Negative); Non Pathogenic Casts 0-2; Protein Urine Negative (Negative); RBC Urine 51-100 /hpf (0-2); Specific Grav Ur 1.018 (1.001-1.035); Squamous Epithelial Cell Urine Occasional /hpf (Few); Urobilinogen Urine 0.2 mg/dL (<2.0); WBC Urine 21-50 /hpf (0-3); pH Urine 5.5 (5.0-9.0)
[2025-02-13 12:57] LABS: Alanine Aminotransferase 46 U/L (6-35); Albumin Level 4.6 g/dL (3.5-5.1); Alkaline Phosphatase 94 U/L (38-126); Anion Gap 11 mmol/L (4-12); Aspartate Amino Transferase 29 U/L (14-36); Bilirubin,Total 0.6 mg/dL (0.2-1.3); Blood Urea Nitrogen 16 mg/dL (7-17); Calcium 9.2 mg/dL (8.4-10.2); Carbon Dioxide 25 mmol/L (22-30); Chloride 104 mmol/L (98-107); Estimated Glomerular Filt Rate > 60; Glucose 87 mg/dL (65-110); Lipase 46 U/L (23-300); Potassium 4.3 mmol/L (3.4-5.0); Sodium 140 mmol/L (137-145)
== END 2025-02-13 14:52 | disposition home or self-care (01) ==
PROVIDERS: Emergency Provider Emergency Medicine; PCP Nurse Practitioner Adult Health
DX: O86.20 Urinary tract infection following delivery, unspecified (principal); N39.0 Urinary tract infection, site not specified; O99.63 Diseases of the digestive system complicating the puerperium; K80.20 Calculus of gallbladder without cholecystitis without obstruction; Z87.891 Personal history of nicotine dependence
CPT/HCPCS: 36415; 74177; 80053; 81001; 81025; 83690; 85025; 87086; 96361; 96365; 99284; J0696; J7030; Q9967

== ENCOUNTER 2025-10-05 13:33 | Outpatient (CLI) | payer BC, SELFPAY ==
--- OUTSIDE RECORDS SUMMARY | 2025-10-05 15:16 | XMS_ITS | Clinical Summary ---
Author Organization [facility] Address [address] [place] [address] Care Team Providers Care Proof Clerk Name Role Phone Obinna Leger MD Unavailable [phone] Source Comments [facility],non-owned Affiliates and Associated Physician Practices is amultiple site organization consisting of ambulatory clinics and hospital sitesin [place], [place], [place] and [place]. This disclosure is being madepursuant to the Care Everywhere program and may not contain all information available regarding this patient. Last updated 18.[facility] Allergies No known active allergies Medications * Be aware that medications may not be up to date on this document. Alwaysverify current medications with the patient. PreviDent 5000 Plus 1.1 % 2 Active Vit w/ Fe Bisg-FA (PNV Tabs 20-1) 20-1 MG TABS Take 1 tablet by mouth once daily 90 tablet 4 4 Active Additional Information Patient not taking.Reported on 07/27/2025 vitamin D3 (Cholecalcifero l) 10 MCG (400 UNIT) tablet Take 1 (one) tablet by mouth once daily Active cyanocobalamin (Vitamin B-12) 1000 MCG tablet Take 1 (one) tablet by mouth once daily Active phentermine (Adipex-P) 37.5 MG tablet 5 Active Prenat w/o Z-KV-Hfiwqog-FA -DHA (PNV-DHA) 27-0.6-0.4-300 MG CAPS TAKE 1 TABLET BY MOUTH ONCE DAILY 90 capsule 4 5 Active Active Problems Problem Noted Date Diagnosed Date Previous section 11/23/2024 Dichorionic diamniotic twin , antepartu m 08/18/2024 H/O LEEP 10/11/2022 Antepartum multigravida of advanced maternal age 1210/11/2022 Tinnitus of both ears 07/06/2020 Tachycardia 07/06/2020 Strain of rhomboid muscle 07/06/2020 Resolved Problems Problem Noted Date Diagnosed Date Resolved Date BMI 30.0-30.9,adult 07/06/2020 08/18/20 Sleep disturbance 07/06/2020 08/18/2024 Body mass index (bmi) 33.0-33.9, adult 02/18/2017 07/06/2020 Encounters Date Type Department Care Team Description 08/24/2025 Refill [facility] [address] [place] [address], [address] [place] [address] Obinna Leger MD Refill Request 08/04/2025 3:00 PM CDT - 08/04/2025 11:59 PM CDT Hospital Encounter [facility] [address] [place] [address] Obinna Leger MD Discharge Disposition: Home or Self Care 07/27/2025 11:30 AM CDT Office Visit [facility] [address] [place] [address], [address] [place] [address] Obinna Leger MD Well woman exam with routine gynecological exam (Primary Dx) 07/27/2025 Travel from Last 3 Months Immunizations Immunization Administration Dates Next Due TDAP (7yrs+) 11/09/2024 TDAP, HISTORIC VACCINE 07/26/2022 Family History Medical History Relation Name Comments Hypertension Brother 1 Ramón CAD (Coronary Artery Disease) Father Cancer Father unknown IN<55(male) Father Parkinson's Disease Father Diabetes Maternal Grandmother [...] Date Recorded Patient Health Questionnaire-2 Score 0 07/27/2025 [facility] - Occupational Stress [...] place to sleep or slept in a penitentiary (including now)? No 05/20/2023 [place] Depression Scale Answer Date Recorded [place] Depression Scale Total 3 03/01/2025 The thought of harming myself has occurred to me . 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 file Not on file Not on f ile Last Filed Vital Signs Vital Sign Reading Time Taken Comments Blood Pressure 120/84 07/27/2025 11:37 AM CDT Pulse 93 01/23/2025 4:40 PM CDT Temperature 36.9 C (98.5 F) 01/23/2025 4:40 PM CDT Respiratory Rate 16 01/23/2025 8:35 AM CDT Oxygen Saturation 98% 01/23/2025 4:40 PM CDT Inhaled Oxygen Concentration - - Weight 83.9 kg (185 lb) 08/04/2025 3:26 PM CDT Height 167.6 cm (5' 6) 08/04/2025 3:26 PM CDT Body Mass Index 29.86 08/04/2025 3:26 PM CDT Plan of Treatment Health Maintenance Due Date Last Done Comments LIPID TESTING 1985 HEPATITIS B VACCINE (1 of 3 - 19+ 3-dose series) 2004 HPV VACCINE (1 - 3-dose SCDM series) 2012 SCREENING FOR DIABETES 03/22/2025 COVID-19 VACCINE ( - 2024- season) 2025 INFLUENZA VACCINE (#1) 2025 MAMMOGRAM 08/04/2027 08/04/2025 PAP SMEAR 07/27/2028 07/27/2025, 08/0 07/2024, 10/25/2023, Additional history exists Cervical Cancer Screening 07/27/2030 PAP with HPV 07/27/2030 07/27/2025, 08/0 07/2024, 10/25/2023, Additional history exists DTAP/TDAP/TD VACCINES (3 - Td or Tdap) 11/09/2034 11/09/2024, 07/26/2022 ZOSTER VACCINE (1 of 2) 2035 HEPATITIS C SCREENING Completed 07/29/2018 HIV SCREENING Completed 06/19/2024, 1211/2021, 07/29/2018 DEPRESSION SCREENING Completed 11/23/2024, 06/19/2024, 06/21/2022 HIB VACCINE Aged Out No longer eligi [...] Procedure Name Priority Date/Time Associated Diagnosis Comments MAMMO BILAT SCREENING W SEBASTIAN Routine 08/04/2025 3:28 PM CDT Well woman exam with routine gynecological exam PAP IG LB+HPV APTIMA Routine 07/27/2025 12:55 PM CDT Well woman exam with routine gynecological exam HIV-1 HIV-2 ANTIBODY + HIV P24 AG PANEL Routine 06/19/2024 12:24 PM CDT 8 weeks gestation of HEPATITIS C ANTIBODY Routine 07/29/2018 3:40 PM CDT Screening for STD (sexually transmitted disease) from Last 3 Months or Most Recently Relevant to Health Maintenance Results * Mammo Bilat Screening W Sebastian (08/04/2025 3:28 PM CDT) Anatomical Region Laterality Modality Breast Bilateral Mammography 08/04/2025 4:07 PM CDT Impressions 08/05/2025 8:43 AM CDT IMPRESSION: Annual screening mammography is recommended. OVERALL FINAL ASSESSMENT: BI-RADS Category 1: Negative. > Interpreting Provider: Mario Muse MD on 08/05/2025 8:43 AM Narrative 08/05/2025 8:43 AM CDT EXAMINATION: BILATERAL DIGITAL SCREENING MAMMOGRAM AND BILATERAL BREAST TOMOSYNTHESIS HISTORY: Screening. COMPARISON: Baseline TECHNIQUE: BILATERAL digital breast tomosynthesis (DBT) and synthetic 2D digital mammogram images were obtained (bilateral craniocaudal and mediolateral oblique projections) including computer aided detection (CAD.) BREAST PARENCHYMAL COMPOSITION:Category B: There are scattered areas of fibroglandular density. MAMMOGRAM FINDINGS: There is no suspicious finding in either breast. us Obinna Leger MD MAMMO ORDERABLES Final Resu lt * PAP IG LB+HPV APTIMA (07/27/2025 12:55 PM CDT) Diagnosis Comment [facility] ACCOUNT BILL Comment: NEGATIVE FOR INTRAEPITHELIAL LESION OR MALIGNANCY. THIS SPECIMEN WAS RESCREENED PART OF OUR SMALL EQUIPMENT OPERATOR PROGRAM. Specimen Adequacy Comment [facility] ACCOUNT BILL Comment: Satisfactory for evaluation. Endocervical and/or squamous metaplastic cells (endocervical component) are present. Clinician Provided ICD10 Comment [facility] ACCOUNT BILL Comment:Z01.419 Performed by Comment [facility] ACCOUNT BILL Comment:Gabby Ferrara, Cytol ogist (ASCP) QC Reviewed by Comment [facility] ACCOUNT BILL Comment:Grant Baker ytologist (ASCP) Comment . [facility] ACCOUNT BILL Note Comment [facility] ACCOUNT BILL Comment: The Pap smear is a screening test designed to aid in the detection of premalignant and malignant conditions of the uterine cervix. It is not a diagnostic procedure and should not be used as the sole means of detecting cervical cancer. Both false-positive and false-negative reports do occur. IGLBP CPT Code Automation Comment [facility] ACCOUNT BILL Comment: This liquid based ThinPrep(R) pap test was screened with the use of an image guided system. Human papillomavirus Aptima Negative Negative [facility] ACCOUNT BILL Comment: This nucleic acid amplification test detects fourteen high-risk HPV types (16,18,31,33,35,39,45,51,52,56,58,59,66,68) without differentiation. Pathology/Cytolog y PART OF UTERINE CERVIX / Unknown 07/27/2025 12:55 PM CDT 07/27/2025 Comment:Cervix Release to julia Troy [facility] ACCOUNT BILL - 08/02/2025 11:10 AM CDT Performed at: 01 - [facility] [place], [place] [id number] Hotbed Operator: Jennifer Vanessa MD, Phone: [phone] Performed at: 02 - [address] [place] [id number] Hotbed Operator: Jennifer Vanessa MD, Phone: [phone] Specimen Comment: [id number] Specimen Comment: No. of containers..01 ThinPrep Vial Obinna Leger MD LAB - PATHOLOGY/CYTOLOGY OR DERABLES Final Result [facility] ACCOUNT BILL [address] [place] [address] * HIV-1 HIV-2 ANTIBODY + HIV P24 AG PANEL (06/19/2024 12:24 PM CDT) [facility] HIV Screen 4th Generation w Reflex Non Reactive Non Reactive [facility] ACCOUNT BILL Comment: HIV-1/HIV-2 antibodies and HIV-1 p24 antigen were NOT detected. There is no laboratory evidence of HIV infection. HIV Negative Blood BLOOD SPECIMEN / Unknown 06/19/2024 12:24 PM CDT 06/19/2024 Narrative Resulting Agency Comment Lab Testing performed at: [facility] [address] [phone] Obinna Leger MD LAB - CHEMISTRY ORDERABLES Final Result Performing Organization Address [facility]/ZIP Co de Phone Number [facility] ACCOUNT BILL [address] [place] [address] * HEPATITIS C ANTIBODY (07/29/2018 3:40 PM CDT) [facility] Hepatitis C Antibody <0.1 0.0 - 0.9 s/co ratio [facility] INSURANCE BILL Comment: Negative: < 0.8 Indeterminate: 0.8 - 0.9 Positive: > 0.9 . The CDC recommends that a positive HCV antibody result be followed up with a HCV Nucleic Acid Amplification test (901098). Blood BLOOD SPECIMEN / Unknown 07/29/2018 3:40 PM CDT 07/29/2018 Narrative Resulting Agency Comment [facility] [place] [address] [facility] [phone] [place] Obinna Leger MD LAB - CHEMISTRY ORDERABLES Final Result [facility] INSURANCE BILL [address] [place] [address] from Last 3 Months or Most Recently Relevant to Health Maintenance Insurance ANTHEM ANTHEM * Guarantor: THEODORA MICHAELS Account Type Relation to Patient Date of Phone Billing Address Personal/Family 1985 [address] [place] [phone] Advance Directives * Full Code (Latest Code Status on File) Date Activated Date Inactivated Comments 01/19/2025 7:57 AM 01/23/2025 7:11 PM * Full Code Date Activated Date Inactivated Comments 05/21/2023 3:47 PM 05/24/2023 3:02 PM * Full Code Date Activated Date Inactivated Comments 05/20/2023 8:38 PM 05/21/2023 3:47 PM Care Teams Proof Clerk Relationship Specialty Start Date End Date Obinna Leger MD [address] [place] [address] Obstetrics and Gynecology 07/06/20
[2025-10-05 19:46] LABS: Hemoglobin A1C 5.0 % (<5.7)
[2025-10-05 20:04] LABS: Alanine Aminotransferase 19 U/L (6-35); Albumin Level 4.6 g/dL (3.5-5.1); Alkaline Phosphatase 64 U/L (38-126); Anion Gap 9 mmol/L (4-12); Aspartate Amino Transferase 35 U/L (14-36); Bilirubin,Total 0.6 mg/dL (0.2-1.3); Blood Urea Nitrogen 9 mg/dL (7-17); Calcium 9.6 mg/dL (8.4-10.2); Carbon Dioxide 24 mmol/L (22-30); Chloride 102 mmol/L (98-107); Cholesterol 170 mg/dL (0-200); Estimated Glomerular Filt Rate > 60; Glucose 77 mg/dL (65-110); HDL Direct 35 mg/dL; Potassium 3.8 mmol/L (3.4-5.0); Sodium 135 mmol/L (137-145); Total Protein 7.7 g/dL (6.3-8.2); Triglycerides 56 mg/dL (<150)
[2025-10-05 20:06] LABS: Free T4 Free Thyroxine 1.19 ng/dL (0.78-2.19)
[2025-10-05 20:35] LABS: Thyroid Stimulating Hormone 0.751 uIU/mL (0.465-4.680)
[2025-10-05 20:53] LABS: Hematocrit 42.1 % (37.0-47.0); Hemoglobin 14.3 g/dL (12.0-15.0); Mean Corpuscular HGB Conc 34.0 g/dl (32-36); Mean Corpuscular Hemoglobin 28.7 pg (26-34); Mean Corpuscular Volume 84.5 fl (80-100); Platelet Count Result 314 k/mm3 (150-375); Red Blood Count 4.98 M/mm3 (4.2-5.4); White Blood Count 7.0 K/mm3 (4.5-10.0)
== END 2025-10-05 13:34 | disposition home or self-care (01) ==
LOC: ANHBWCLAB 13:34
PROVIDERS: PCP Nurse Practitioner Adult Health; Visit Provider Nurse Practitioner Adult Health
DX: Z00.00 Encounter for general adult medical examination without abnormal findings (principal); Z83.3 Family history of diabetes mellitus
CPT/HCPCS: 36415; 80053; 80061; 83036; 84439; 84443; 85027